=== PATIENT | female | born 1965 | race Caucasian/White ===

== ENCOUNTER 2020-04-16 07:23 | Outpatient (REF) | payer OTHER, SELFPAY ==
[2020-04-16 08:26] LABS: Estimated Average Glucose 143 mg/dL; Hemoglobin A1c % 6.6 %
[2020-04-16 08:36] LABS: Alanine Aminotransferase 17 U/L (0-31); Albumin Level 4.3 g/dL (3.5-5.0); Alkaline Phosphatase 109 U/L (39-117); Anion Gap 13 (12-20); Aspartate Amino Transferase 16 U/L (5-31); Bilirubin Total 0.4 mg/dL (0.0-1.0); Blood Urea Nitrogen 12 mg/dL (9-16); Carbon Dioxide 24 mmol/L (22-29); Chloride 104 mmol/L (96-108); Cholesterol 166 mg/dL; Estimated Glomerular Filt Rate > 60; Glucose Fasting 128 mg/dL (60-99); HDL Cholesterol 35 mg/dL; LDL Cholesterol Calculated 104 mg/dl; Sodium 137 mmol/L (135-145); Total Protein 6.6 g/dL (6.5-8.0); Triglycerides 136 mg/dL
[2020-04-16 08:58] LABS: TSH reflex Free T4 1.99 mIU/mL (0.32-4.0)
== END 2020-04-16 07:24 | disposition home or self-care (01) ==
LOC: HO.LAB 07:23
PROVIDERS: PCP Internal Medicine; Visit Provider Physician Assistant Medical
DX: E78.00 Pure hypercholesterolemia, unspecified (principal); R73.01 Impaired fasting glucose; E03.9 Hypothyroidism, unspecified
CPT/HCPCS: 80053; 80061; 83036; 84443

== ENCOUNTER 2020-09-20 13:09 | Outpatient (REF) | payer OTHER, SELFPAY ==
--- NOTE | ~2020-09-20 | MM_ITS ---
EXAMINATION: MM SCREENING DIGITAL BREAST TOMOSYNTHESIS, BILATERAL CLINICAL INFORMATION: Screening. Asymptomatic. The lifetime risk of breast cancer based on the Tyrer-Cuzick Model is 8.2%. COMPARISON: Mammography: July 28, 2019 and studies dating back to April 08, 2012 TECHNIQUE: Digital breast tomosynthesis is performed in both the craniocaudal and mediolateral oblique views along with computer-aided detection (CAD). Synthesized 2D images are generated from the tomosynthesis. FINDINGS: There are scattered areas of fibroglandular density (ACR BI-RADS breast composition Category b). There are no significant masses, abnormal calcifications, or other abnormalities. MM/MM tomosynthesis screening BI IMPRESSION: There are no significant changes from prior study. ASSESSMENT: BI-RADS 1: Negative RECOMMENDATION: Routine annual mammography screening. This patient's information was entered into a reminder system with a target due date for their next mammogram.
== END 2020-09-20 13:10 | disposition home or self-care (01) ==
LOC: HO.MAMMO 13:09
PROVIDERS: PCP Internal Medicine; Visit Provider Internal Medicine
DX: Z12.31 Encounter for screening mammogram for malignant neoplasm of breast (principal)
CPT/HCPCS: 77063; 77067

== ENCOUNTER 2020-10-08 07:37 | Outpatient (REF) | payer OTHER, SELFPAY ==
[2020-10-08 08:13] LABS: Estimated Average Glucose 143 mg/dL; Hemoglobin A1c % 6.6 %
== END 2020-10-08 07:38 | disposition home or self-care (01) ==
LOC: HO.LAB 07:37
PROVIDERS: PCP Internal Medicine; Visit Provider Internal Medicine
DX: R73.01 Impaired fasting glucose (principal)
CPT/HCPCS: 36415; 80053; 83036

== ENCOUNTER 2020-12-12 14:44 | Outpatient (REF) | payer OTHER, SELFPAY ==
--- NOTE | ~2020-12-12 | XR_ITS ---
EXAMINATION: XR ELBOW, LEFT CLINICAL INFORMATION: Pain. COMPARISON: None TECHNIQUE: AP, lateral, and oblique views of the left elbow. FINDINGS: The joint space is normal. No loose bodies, fracture or joint effusion. The soft tissues are normal. XR/XR elbow LT min 3V IMPRESSION: Unremarkable left elbow exam.
[2020-12-12 16:30] LABS: Estimated Average Glucose 146 mg/dL; Hemoglobin A1c % 6.7 %
== END 2020-12-12 14:45 | disposition home or self-care (01) ==
LOC: HO.XRAY 14:44
PROVIDERS: PCP Internal Medicine; Visit Provider Physician Assistant
DX: M25.522 Pain in left elbow (principal); E11.9 Type 2 diabetes mellitus without complications
CPT/HCPCS: 36415; 73080; 83036

== ENCOUNTER → 2021-02-02 08:13 | Outpatient (REF) | payer OTHER, SELFPAY ==
--- NOTE | 2021-02-02 08:18 | CA_ITS ---
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 The calculated ejection fraction is 60% by biplane method. - No obvious valvular pathology seen on this study. Findings Left Ventricle Normal left ventricular cavity size. There is normal left ventricular wall thickness. The left ventricular systolic function is normal. The calculated ejection fraction is 60% by biplane method. There is no evidence of regional wall motion abnormalities. Diastolic function is normal for age. Right Ventricle Normal right ventricular cavity size and systolic function. Atria Both atria are normal in size. Aortic Valve There is a normal trileaflet aortic valve. There is no aortic valve stenosis. There is no aortic valve regurgitation. Mitral Valve The mitral valve appears normal. There is trace mitral valve regurgitation. There is no mitral valve stenosis. Pulmonic Valve The pulmonic valve was not well visualized. Tricuspid Valve Normal tricuspid valve structure. There is mild tricuspid valve regurgitation. The pulmonary artery systolic pressure is normal. Great Vessels The aortic annulus, sinuses of valsalva, asc aorta, and aortic arch are normal in size. Venous The inferior vena cava is normal in size and collapses greater than 50% with inspiration. Pericardium/Pleural There is no evidence of pericardial effusion. Prior Study Comparison No significant change compared to prior study dated: 11/06/2001. Recommendations, Care & Conclusions No obvious valvular pathology seen on this study. Measurements 2D Linear Measurements IVSd: 0.93 0.6-0.9/0.6-1.0 cm LVIDd: 5.27 3.9-5.3/4.2-5.9 cm LVIDd Index: 2.34 2.4-3.2/2.2-3.1 cm/m2 LVIDs: 3.66 2.0-3.6 cm LVPWd: 0.86 0.7-1.1 cm Ao Root: 2.90 2.1-3.5 cm LA Diam: 4.50 2.7-3.8/3.0-4.0 cm LAIDs Index: 2.00 1.5-2.3 cm/m2 LV Mass: 213.75 67-162/88-224 g LV Mass Index: 95.00 43-95/49-115 g/m2 LVOT Diam: 2.10 3.0+(-)1.3 cm 2D Systolic Function EF 4C: 57.20 >55% EF 2C: 61.50 >55% EF BiP: 60.00 >55% Mitral Valve MV Pk E: 0.75 MV PK A: 0.60 MV Decel Time: 182.00 E/A: 1.20 E'Lateral: 10.90 E'Medial: 8.70 E/E' Med: 8.60 E/E' Lat: 6.80 PHT: 53.00 MVA PHT: 4.15 Decel [place]: 4.10 Aortic Valve AoV Pk [place]: 1.35 AoV Mn [place]: 0.94 AoV VTI: 0.27 AoV Pk Grad: 7.00 Aov Mn Grad: 4.00 WILLIAM Cont.VTI: 2.90 LVOT LVOT Pk [place]: 1.12 LVOT Mn [place]: 0.79 LVOT VTI: 0.23 LVOT Pk Grad: 5.00 LVOT Mn Grad: 3.00 LVOT Diam: 2.10 LVOT Area: 3.46 Diastolic Function MV Pk E: 0.75 MV Pk A: 0.60 E/A: 1.20 E'Medial: 8.70 E/E' Med: 8.60 E' Laterial: 10.90 E/E' Lat: 6.80 Right Ventricle TAPSE (mm): 2.48 TVS' [place]: 12.60 Tricuspid Valve TR Pk [place]: 2.29 TR Pk Grad: 21.00 RA Press: 3.00 RVSP: 24.00 Great Vessels Aorta Ao Root-2D: 2.90 2.0-3.7 cm Ao Asc: 3.00 2.1-3.4 cm Ao Arch: 2.70 Updated in Other Vendor System with Status of Final Johnny Fagan MD electronically signed on 02/04/2021 1:42:30 PM with status of Final
--- NOTE | 2021-02-02 09:30 | CA_ITS ---
Acquisition Time: 2021-02-02 09:20:18 Total Exercise Time: 00:05:00 Test Indications: FM HX CAD Medications: SEE CHART Protocol: IVONNE Max HR: 162 BPM 98% of Pred: 165 BPM Max BP: 206/050 mmHG Max Work Load: 7.0 METS Exercise stress test with exercise 5 min of Ivonne protocol, with moderate shortness of breath and report of dry mouth , no CP, without arrythmia, with hypertensive response to exercise with max BP 206/50, without EKG changes meeting criteria for ischemia. In recovery her breathing returned to baseline and BP gradually reduced to below baseline. Test reviewed with Dr Fagan. Referred By: Ml Leon Overread By: ROULA MIMS
== END ==
LOC: HO.CARD 08:13
PROVIDERS: PCP Internal Medicine; Visit Provider Physician Assistant
DX: M25.522 Pain in left elbow (principal); Z82.49 Family history of ischemic heart disease and other diseases of the circulatory system
CPT/HCPCS: 93017; 93306

== ENCOUNTER 2021-05-22 13:43 | Outpatient (REF) | payer OTHER, SELFPAY ==
--- NOTE | ~2021-05-22 | XR_ITS ---
EXAMINATION: XR CHEST CLINICAL INFORMATION: Shortness of breath. COMPARISON: None TECHNIQUE: 2 views of the chest were obtained. FINDINGS: The trachea is in normal anatomic position. The heart is minimally enlarged. There is enlargement of the pulmonary vasculature without overt pulmonary edema. There is mild blunting of the right costophrenic angle consistent with a small right pleural effusion. There is no pneumothorax. There is no acute osseous abnormality. XR/XR chest 2V IMPRESSION: Enlargement of the pulmonary vasculature and a small right pleural effusion suggestive of fluid overload. No pneumonia.
[2021-05-22 14:28] LABS: D Dimer High Sensitivity 643 NG/ML
== END 2021-05-22 13:44 | disposition home or self-care (01) ==
LOC: HO.LAB 13:43
PROVIDERS: PCP Physician Assistant; Visit Provider Physician Assistant
DX: R06.02 Shortness of breath (principal)
CPT/HCPCS: 36415; 71046; 85379

== ENCOUNTER 2021-06-06 16:02 | Outpatient (REF) | payer OTHER, SELFPAY ==
--- NOTE | ~2021-06-06 | XR_ITS ---
EXAMINATION: XR CHEST CLINICAL INFORMATION: Bilateral pleural effusions. COMPARISON: Chest 05/22/2021 TECHNIQUE: 2 views of the chest were obtained. FINDINGS: The lungs are expanded and clear of acute process. The heart size and pulmonary vascularity is normal. No gross bony abnormality seen. XR/XR chest 2V IMPRESSION: Unremarkable chest examination.
== END 2021-06-06 16:03 | disposition home or self-care (01) ==
LOC: HO.XRAY 16:02
PROVIDERS: PCP Physician Assistant; Visit Provider Physician Assistant
DX: J90 Pleural effusion, not elsewhere classified (principal)
CPT/HCPCS: 36415; 71046; 80053

== ENCOUNTER 2021-06-13 14:04 | Outpatient (REF) | payer OTHER, SELFPAY ==
[2021-06-13 18:45] LABS: Alanine Aminotransferase 13 U/L (0-31); Albumin Level 4.2 g/dL (3.5-5.0); Alkaline Phosphatase 110 U/L (39-117); Anion Gap 13 (12-20); Aspartate Amino Transferase 15 U/L (5-31); Bilirubin Total 0.4 mg/dL (0.0-1.0); Blood Urea Nitrogen 17 mg/dL (9-16); Calcium 9.8 mg/dL (8.4-10.2); Carbon Dioxide 24 mmol/L (22-29); Chloride 108 mmol/L (96-108); Estimated Glomerular Filt Rate > 60; Glucose Random 134 mg/dL (60-115); Potassium 3.7 mmol/L (3.3-5.1); Sodium 141 mmol/L (135-145); Total Protein 6.9 g/dL (6.5-8.0)
== END 2021-06-13 14:05 | disposition home or self-care (01) ==
LOC: HO.MANLDS 14:04
PROVIDERS: PCP Physician Assistant; Visit Provider Physician Assistant
DX: J90 Pleural effusion, not elsewhere classified (principal)
CPT/HCPCS: 36415; 80053

== ENCOUNTER → 2021-08-07 14:43 | Outpatient (REF) | payer OTHER, SELFPAY ==
--- NOTE | 2021-08-07 14:48 | CA_ITS ---
Transthoracic Echocardiogram Limited Patient (Last, First, Middle): Lorrie Parikh, Gender: Female Date of : 1965 Age: 56 Procedure Date: 08/07/2021 Procedure Type: Transthoracic Echocardiogram Limited Location: OP Height: 162.56 cm Weight: 122.47 kg BSA: 2.22 m2 Heart Rate: bpm BP: 124 / 80 mmHg Coding Coordinator: TRENT Referring MD: Ml HOGAN Symptoms: J90 PLURAL EFFUSION Study Quality: Fair ECG Rhythm: Sinus Conclusions: - The left ventricular systolic function is normal. The visually estimated ejection fraction is between 60-65%. - Normal right ventricular cavity size and systolic function. Findings Left Ventricle Normal left ventricular cavity size. The left ventricular systolic function is normal. The visually estimated ejection fraction is between 60-65%. There is no evidence of regional wall motion abnormalities. Top normal LV wall thickness. Right Ventricle Normal right ventricular cavity size and systolic function. Tricuspid Valve There is trace tricuspid valve regurgitation. The pulmonary artery systolic pressure is normal. Venous The inferior vena cava is normal in size and collapses greater than 50% with inspiration. Prior Study Comparison No significant change compared to prior study dated: 02/02/2021. Measurements 2D Linear Measurements IVSd: 1.35 0.6-0.9/0.6-1.0 cm LVIDd: 4.53 3.9-5.3/4.2-5.9 cm LVIDd Index: 2.04 2.4-3.2/2.2-3.1 cm/m2 LVIDs: 2.50 2.0-3.6 cm LVPWd: 1.30 0.7-1.1 cm LV Mass: 288.27 67-162/88-224 g LV Mass Index: 129.85 43-95/49-115 g/m2 Mitral Valve MV Pk E: 0.68 MV PK A: 0.58 MV Decel Time: 114.00 E/A: 1.20 E'Lateral: 12.60 E'Medial: 10.90 E/E' Med: 6.20 E/E' Lat: 5.40 PHT: 33.00 MVA PHT: 6.67 Decel [place]: 6.00 Diastolic Function MV Pk E: 0.68 MV Pk A: 0.58 E/A: 1.20 E'Medial: 10.90 E/E' Med: 6.20 E' Laterial: 12.60 E/E' Lat: 5.40 Right Ventricle TAPSE (mm): 20.00 TVS' [place]: 10.00 Tricuspid Valve TR Pk [place]: 1.90 TR Pk Grad: 14.00 RA Press: 3.00 RVSP: 17.00 Updated in Other Vendor System with Status of Final Johnny Fagan MD electronically signed on 08/08/2021 12:08:51 PM with status of Final
== END ==
LOC: HO.CARD 14:43
PROVIDERS: PCP Physician Assistant; Visit Provider Physician Assistant
DX: J90 Pleural effusion, not elsewhere classified (principal)
CPT/HCPCS: 93308

== ENCOUNTER 2021-09-26 13:50 | Outpatient (REF) | payer OTHER, SELFPAY ==
--- NOTE | ~2021-09-26 | MM_ITS ---
EXAMINATION: MM SCREENING DIGITAL BREAST TOMOSYNTHESIS, BILATERAL CLINICAL INFORMATION: Screening. Asymptomatic. The lifetime risk of breast cancer based on the Tyrer-Cuzick Model is 7%. COMPARISON: Mammography: 09/20/2020, 07/28/2019, 06/10/2018 TECHNIQUE: Digital breast tomosynthesis is performed in both the craniocaudal and mediolateral oblique views along with computer-aided detection (CAD). Synthesized 2D images are generated from the tomosynthesis. Additional bilateral CC and left MLO views are provided. FINDINGS: There are scattered areas of fibroglandular density (ACR BI-RADS breast composition Category b). There are no significant masses, abnormal calcifications, or other abnormalities. No developing density or architectural abnormality. The axilla and skin contours are unremarkable. MM/MM tomosynthesis screening BI IMPRESSION: No mammographic evidence of malignancy. ASSESSMENT: BI-RADS 1: Negative RECOMMENDATION: Routine annual mammography screening. This patient's information was entered into a reminder system with a target due date for their next mammogram.
== END 2021-09-26 13:51 | disposition home or self-care (01) ==
LOC: HO.MAMMO 13:50
PROVIDERS: PCP Physician Assistant; Visit Provider Obstetrics & Gynecology
DX: Z12.31 Encounter for screening mammogram for malignant neoplasm of breast (principal)
CPT/HCPCS: 77063; 77067

== ENCOUNTER 2021-10-17 11:52 | Outpatient (REF) | payer OTHER, SELFPAY ==
--- NOTE | ~2021-10-17 | XR_ITS ---
EXAMINATION: XR KNEE, RIGHT XR KNEE, LEFT CLINICAL INFORMATION: Bilateral knee pain. COMPARISON: Radiographs right knee 03/27/2016 and left knee 06/08/2014. TECHNIQUE: Each knee is imaged in 4 views including AP projections with weightbearing. There are total of 8 views between the 2 sides. FINDINGS: Right: Normal bony mineralization. There is moderate narrowing medial knee joint compartment. No subchondral sclerosis, erosive change, or chondrocalcinosis. No definite effusion. Patella bursal thickness within limits of normal. There is no destructive process. Axial view patella shows no lateralization or definite tilting. Left: Normal bony mineralization. Mild narrowing medial knee joint compartment, increased since prior imaging 2014. No erosive change or chondrocalcinosis or subchondral sclerosis. No suprapatellar effusion. Axial view patella shows no definite lateralization or tilting. No destructive process. XR/XR knee RT 4V IMPRESSION: -Narrowing medial knee joint compartments, moderate right, mild left. -No erosive change or chondrocalcinosis or definite effusion.
--- NOTE | ~2021-10-17 | XR_ITS ---
EXAMINATION: XR KNEE, RIGHT XR KNEE, LEFT CLINICAL INFORMATION: Bilateral knee pain. COMPARISON: Radiographs right knee 03/27/2016 and left knee 06/08/2014. TECHNIQUE: Each knee is imaged in 4 views including AP projections with weightbearing. There are total of 8 views between the 2 sides. FINDINGS: Right: Normal bony mineralization. There is moderate narrowing medial knee joint compartment. No subchondral sclerosis, erosive change, or chondrocalcinosis. No definite effusion. Patella bursal thickness within limits of normal. There is no destructive process. Axial view patella shows no lateralization or definite tilting. Left: Normal bony mineralization. Mild narrowing medial knee joint compartment, increased since prior imaging 2014. No erosive change or chondrocalcinosis or subchondral sclerosis. No suprapatellar effusion. Axial view patella shows no definite lateralization or tilting. No destructive process. XR/XR knee LT 4V IMPRESSION: -Narrowing medial knee joint compartments, moderate right, mild left. -No erosive change or chondrocalcinosis or definite effusion.
[2021-10-17 13:15] LABS: Estimated Average Glucose 140 mg/dL; Hemoglobin A1c % 6.5 %
[2021-10-17 13:46] LABS: Alanine Aminotransferase 17 U/L (0-31); Albumin Level 4.3 g/dL (3.5-5.0); Alkaline Phosphatase 111 U/L (39-117); Anion Gap 13 (12-20); Aspartate Amino Transferase 16 U/L (5-31); Bilirubin Total 0.5 mg/dL (0.0-1.0); Blood Urea Nitrogen 13 mg/dL (9-16); C Reactive Protein 0.15 mg/dL (< or = 0.50); Calcium 9.6 mg/dL (8.4-10.2); Carbon Dioxide 25 mmol/L (22-29); Chloride 107 mmol/L (96-108); Estimated Glomerular Filt Rate > 60; Glucose Random 104 mg/dL (60-115); Potassium 4.3 mmol/L (3.3-5.1); Sodium 141 mmol/L (135-145)
[2021-10-17 13:50] LABS: Erythrocyte Sedimentation Rate 6 MM/HR (0-20)
[2021-10-17 13:58] LABS: Uric Acid 5.9 mg/dL (2.4-5.7)
== END 2021-10-17 11:53 | disposition home or self-care (01) ==
LOC: HO.LAB 11:52
PROVIDERS: PCP Physician Assistant; Visit Provider Physician Assistant
DX: E11.9 Type 2 diabetes mellitus without complications (principal); M25.561 Pain in right knee; M25.562 Pain in left knee
CPT/HCPCS: 36415; 73564; 80053; 83036; 84550; 85652; 86140

== ENCOUNTER 2021-12-09 07:14 | Outpatient (REF) | payer OTHER, SELFPAY ==
[2021-12-09 08:58] LABS: Alanine Aminotransferase 16 U/L (0-31); Albumin Level 4.4 g/dL (3.5-5.0); Alkaline Phosphatase 116 U/L (39-117); Anion Gap 13 (12-20); Aspartate Amino Transferase 16 U/L (5-31); Bilirubin Total 0.6 mg/dL (0.0-1.0); Blood Urea Nitrogen 12 mg/dL (9-16); C Reactive Protein 0.16 mg/dL (< or = 0.50); Carbon Dioxide 23 mmol/L (22-29); Chloride 108 mmol/L (96-108); Estimated Glomerular Filt Rate > 60; Glucose Random 129 mg/dL (60-115); Sodium 140 mmol/L (135-145); Total Protein 6.8 g/dL (6.5-8.0); Uric Acid 5.4 mg/dL (2.4-5.7)
[2021-12-09 09:05] LABS: Estimated Average Glucose 146 mg/dL; Hemoglobin A1c % 6.7 %
[2021-12-09 09:07] LABS: Erythrocyte Sedimentation Rate 7 MM/HR (0-20)
== END 2021-12-09 07:15 | disposition home or self-care (01) ==
LOC: HO.LAB 07:14
PROVIDERS: PCP Internal Medicine; Visit Provider Physician Assistant
DX: M25.561 Pain in right knee (principal); E11.9 Type 2 diabetes mellitus without complications
CPT/HCPCS: 36415; 80053; 83036; 84550; 85652; 86140

== ENCOUNTER 2022-07-05 07:30 | Outpatient (REF) | payer OTHER, SELFPAY ==
--- NOTE | 2022-07-05 | PFT_ITS ---
Forced vital capacity 85%, FEV1 89%, [id number] is 96%, and MVV 89%. Post bronchodilator therapy, there is no change. Total lung capacity 90% and residual volume 84%. Diffusion capacity 71%. CONCLUSION: Normal pulmonary function test. No evidence of obstructive or restrictive pulmonary disorder. Clinical correlation recommended. MD THONY De Jesus/SÁNCHEZ / [id number]
== END 2022-07-05 07:31 | disposition home or self-care (01) ==
LOC: HO.RESP 07:30
PROVIDERS: PCP Physician Assistant; Visit Provider Physician Assistant
DX: R05.9 Cough, unspecified (principal)
CPT/HCPCS: 94060; 94727; 94729

== ENCOUNTER 2022-10-02 13:48 | Outpatient (REF) | payer OTHER, SELFPAY ==
--- NOTE | ~2022-10-02 | MM_ITS ---
EXAMINATION: MM SCREENING DIGITAL BREAST TOMOSYNTHESIS, BILATERAL CLINICAL INFORMATION: Screening. Asymptomatic. The lifetime risk of breast cancer based on the Tyrer-Cuzick Model is 7%. COMPARISON: Mammography: 09/26/2021, 09/20/2020, 07/28/2019, 06/10/2018 TECHNIQUE: Digital breast tomosynthesis is performed in both the craniocaudal and mediolateral oblique views along with computer-aided detection (CAD). Synthesized 2D images are generated from the tomosynthesis. Additional bilateral MLO views are provided. FINDINGS: There are scattered areas of fibroglandular density (ACR BI-RADS breast composition Category b). There are no significant masses, abnormal calcifications, or other abnormalities. No architectural abnormality or developing density or significant change from prior studies. The axilla are unremarkable. MM/MM tomosynthesis screening BI IMPRESSION: No mammographic evidence of malignancy. ASSESSMENT: BI-RADS 1: Negative RECOMMENDATION: Routine annual mammography screening. This patient's information was entered into a reminder system with a target due date for their next mammogram.
== END 2022-10-02 13:49 | disposition home or self-care (01) ==
LOC: HO.MAMMO 13:48
PROVIDERS: PCP Internal Medicine; Visit Provider Physician Assistant
DX: Z12.31 Encounter for screening mammogram for malignant neoplasm of breast (principal)
CPT/HCPCS: 77063; 77067

== ENCOUNTER 2022-11-17 07:07 | Outpatient (REF) | payer OTHER, SELFPAY ==
[2022-11-17 07:29] LABS: MANUAL DIFF FLAG NO
[2022-11-17 07:51] LABS: Basophils Percent Auto 0.7 % (0-2); Eosinophils Absolute Auto 0.3 X10*3/uL (0.0-0.4); Eosinophils Percent Auto 4.6 % (0-4); Hematocrit 39.4 % (37.0-47.0); Hemoglobin 13.3 g/dl (12.0-16.0); Imm Gran Abs Auto 0.02 X10*3/uL (0.00-0.03); Imm Gran Pct Auto 0.3 % (0.0-0.4); Lymphocytes Absolute Auto 1.8 X10*3/uL (1.2-4.9); Lymphocytes Percent Auto 28.7 % (20-40); Mean Corpuscular HGB Conc 33.8 g/dl (31.0-35.0); Mean Corpuscular Volume 94.7 fL (80.0-98.0); Mean Platelet Volume 11.2 fL (9.4-12.3); Monocytes Absolute Auto 0.5 X10*3/uL (0.1-1.2); Monocytes Percent Auto 7.5 % (2-11); Neutrophils Absolute Auto 3.6 x10*3/uL (2.0-8.3); Neutrophils Percent Auto 58.2 % (45-73); Platelet Count 213 X10*3/uL (160-400); Red Blood Count 4.16 X10*6/uL (4.20-5.50); Red Cell Distribution Width 12.9 % (11.0-16.0); White Blood Count 6.1 X10*3/uL (4.8-10.8)
[2022-11-17 08:07] LABS: Estimated Average Glucose 137 mg/dL; Hemoglobin A1c % 6.4 %
[2022-11-17 08:26] LABS: Alanine Aminotransferase 14 U/L (0-31); Albumin Level 4.2 g/dL (3.5-5.0); Alkaline Phosphatase 111 U/L (39-117); Anion Gap 13 (12-20); Aspartate Amino Transferase 18 U/L (5-31); Bilirubin Total 0.7 mg/dL (0.0-1.0); Blood Urea Nitrogen 12 mg/dL (9-16); Calcium 9.9 mg/dL (8.4-10.2); Carbon Dioxide 26 mmol/L (22-29); Chloride 108 mmol/L (96-108); Cholesterol 187 mg/dL; Estimated Glomerular Filt Rate > 60; Glucose Random 136 mg/dL (60-115); HDL Cholesterol 36 mg/dL; LDL Cholesterol Calculated 111 mg/dl; Potassium 4.5 mmol/L (3.3-5.1); Sodium 142 mmol/L (135-145); Total Protein 6.8 g/dL (6.5-8.0); Triglycerides 202 mg/dL
[2022-11-17 08:49] LABS: Free T4 (Free Thyroxine) 0.84 ng/dL (0.71-1.85)
== END 2022-11-17 07:08 | disposition home or self-care (01) ==
LOC: HO.LAB 07:07
PROVIDERS: PCP Internal Medicine; Visit Provider Physician Assistant
DX: Z00.00 Encounter for general adult medical examination without abnormal findings (principal); R73.01 Impaired fasting glucose; Z82.49 Family history of ischemic heart disease and other diseases of the circulatory system
CPT/HCPCS: 36415; 80053; 80061; 83036; 84439; 84443; 85025

== ENCOUNTER 2023-04-13 07:12 | Outpatient (REF) | payer OTHER, SELFPAY ==
[2023-04-13 07:53] LABS: Estimated Average Glucose 134 mg/dL; Hemoglobin A1c % 6.3 % (<6.0)
[2023-04-13 08:10] LABS: Cholesterol 180 mg/dL (<200); HDL Cholesterol 38 mg/dL (>40); LDL Cholesterol Calculated 115 mg/dL (<100); Triglycerides 139 mg/dL (<150)
[2023-04-13 08:26] LABS: TSH reflex Free T4 1.95 uIU/mL (0.32-4.0)
== END 2023-04-13 07:13 | disposition home or self-care (01) ==
LOC: HO.LAB 07:12
PROVIDERS: PCP Physician Assistant; Visit Provider Physician Assistant
DX: E11.9 Type 2 diabetes mellitus without complications (principal); E03.1 Congenital hypothyroidism without goiter
CPT/HCPCS: 36415; 80061; 83036; 84443

== ENCOUNTER 2023-08-01 06:18 | Outpatient (REF) | payer OTHER, SELFPAY ==
[2023-08-01 06:54] LABS: MANUAL DIFF FLAG NO
[2023-08-01 07:57] LABS: Basophils Percent Auto 0.6 % (0-2); Eosinophils Absolute Auto 0.2 X10*3/uL (0.0-0.4); Eosinophils Percent Auto 3.1 % (0-4); Hematocrit 39.7 % (37.0-47.0); Hemoglobin 13.5 g/dl (12.0-16.0); Imm Gran Abs Auto 0.03 X10*3/uL (0.00-0.03); Imm Gran Pct Auto 0.6 % (0.0-0.4); Lymphocytes Absolute Auto 1.7 X10*3/uL (1.2-4.9); Mean Corpuscular Hemoglobin 32.5 pg (27.0-33.0); Mean Corpuscular Volume 95.4 fL (80.0-98.0); Mean Platelet Volume 12.1 fL (9.4-12.3); Monocytes Absolute Auto 0.4 X10*3/uL (0.1-1.2); Monocytes Percent Auto 7.4 % (2-11); Neutrophils Absolute Auto 3.1 x10*3/uL (2.0-8.3); Neutrophils Percent Auto 57.3 % (45-73); Platelet Count 178 X10*3/uL (160-400); Red Blood Count 4.16 X10*6/uL (4.20-5.50); Red Cell Distribution Width 12.3 % (11.0-16.0); White Blood Count 5.4 X10*3/uL (4.8-10.8)
[2023-08-01 08:11] LABS: Appearance Urine Clear; Color Urine Yellow; Glucose Urine UA Negative (Negative); Leukocyte Esterase Urine Small (1+) (Negative); Nitrite Urine Negative (Negative); PH 5.5 (5.0-9.0); Specific Gravity - Urine 1.015 (1.005-1.025); UMIC TRIGGER UACC YES; Urine Blood Negative (Negative); Urine Ketones Negative (Negative); Urine Protein Negative (Neg-Trace)
[2023-08-01 08:15] LABS: Estimated Average Glucose 134 mg/dL; Hemoglobin A1c % 6.3 % (<6.0)
[2023-08-01 08:32] LABS: Bacteria Urine None Seen (None Seen); Hyaline Casts Urine 0-2 /LPF (0-2); RBC Urine 0-2 /HPF (0-2); Squamous Epithelial Cell Urine 0-2 /HPF (0-2); UACC Culture Trigger YES; WBC Urine 0-5 /HPF (0-5)
[2023-08-01 08:34] LABS: Erythrocyte Sedimentation Rate 7 MM/HR (0-20)
[2023-08-01 08:35] LABS: Alanine Aminotransferase 19 U/L (0-31); Albumin Level 4.3 g/dL (3.5-5.0); Alkaline Phosphatase 104 U/L (39-117); Anion Gap 12 (12-20); Aspartate Amino Transferase 18 U/L (5-31); Bilirubin Total 0.4 mg/dL (0.0-1.0); Blood Urea Nitrogen 12 mg/dL (9-16); Calcium 9.4 mg/dL (8.4-10.2); Carbon Dioxide 24 mmol/L (22-29); Chloride 107 mmol/L (96-108); Estimated Glomerular Filt Rate > 60; Glucose Random 137 mg/dL (60-115); Iron 90 mcg/dL (30-160); Percent Iron Saturation 35 % (15-50); Sodium 139 mmol/L (135-145); Total Iron Binding Capacity 255 mcg/dL (228-428); Total Protein 7.1 g/dL (6.5-8.0); Unsaturated Iron Binding 165 ug/dL
[2023-08-01 08:37] LABS: Free T4 (Free Thyroxine) 0.97 ng/dL (0.71-1.85); Thyroid Stimulating Hormone 2.72 uIU/mL (0.32-4.0); Vitamin D 25-OH Total 52.4 ng/mL (>30)
[2023-08-01 08:57] LABS: Vitamin B12 413 pg/mL (200-900)
[2023-08-01 09:02] LABS: D Dimer High Sensitivity 436 NG/ML
[2023-08-03 06:18] LABS: Lyme Abs Screen <0.90 index
== END 2023-08-01 06:19 | disposition home or self-care (01) ==
LOC: HO.LAB 06:18
PROVIDERS: PCP Physician Assistant; Visit Provider Physician Assistant
DX: R53.83 Other fatigue (principal); E11.9 Type 2 diabetes mellitus without complications
CPT/HCPCS: 36415; 80053; 81001; 81003; 82306; 82607; 82746; 83036; 83540; 84439; 84443; 85025; 85379; 85652; 86140; 86617; 86618; 87086

== ENCOUNTER 2023-10-04 14:56 | Outpatient (REF) | payer OTHER, SELFPAY | END 2023-10-04 14:57 | disposition home or self-care (01) | LOC: HO.MAMMO 14:56 | PROVIDERS: PCP Internal Medicine; Referring Provider Obstetrics & Gynecology; Visit Provider Internal Medicine | DX: Z12.31 Encounter for screening mammogram for malignant neoplasm of breast (principal) | CPT/HCPCS: 77063; 77067 ==

== ENCOUNTER → 2023-10-04 15:15 | Outpatient (BNV) | payer OTHER, SELFPAY | PROVIDERS: PCP Internal Medicine; Referring Provider Obstetrics & Gynecology; Visit Provider Radiology Diagnostic Radiology | DX: Z12.31 Encounter for screening mammogram for malignant neoplasm of breast (principal) | CPT/HCPCS: 77063; 77067 ==

== ENCOUNTER 2024-02-04 15:12 | Outpatient (REF) | payer OTHER, SELFPAY ==
[2024-02-04 17:06] LABS: Alanine Aminotransferase 19 U/L (0-31); Albumin Level 4.3 g/dL (3.5-5.0); Alkaline Phosphatase 102 U/L (39-117); Anion Gap 11 (12-20); Aspartate Amino Transferase 18 U/L (5-31); Bilirubin Total 0.3 mg/dL (0.0-1.0); Blood Urea Nitrogen 14 mg/dL (9-16); Calcium 9.5 mg/dL (8.4-10.2); Carbon Dioxide 26 mmol/L (22-29); Chloride 107 mmol/L (96-108); Estimated Glomerular Filt Rate > 60; Glucose Random 107 mg/dL (60-115); Potassium 3.8 mmol/L (3.3-5.1); Sodium 140 mmol/L (135-145); Total Protein 7.2 g/dL (6.5-8.0)
== END 2024-02-04 15:13 | disposition home or self-care (01) ==
LOC: HO.LABR 15:12
PROVIDERS: PCP Internal Medicine; Visit Provider Physician Assistant
DX: N18.2 Chronic kidney disease, stage 2 (mild) (principal)
CPT/HCPCS: 36415; 80053

== ENCOUNTER 2024-06-13 07:02 | Outpatient (REF) | payer OTHER, SELFPAY ==
[2024-06-13 08:11] LABS: Alanine Aminotransferase 25 U/L (0-31); Albumin Level 4.4 g/dL (3.5-5.0); Alkaline Phosphatase 117 U/L (39-117); Anion Gap 12 (12-20); Aspartate Amino Transferase 23 U/L (5-31); Bilirubin Total 0.5 mg/dL (0.0-1.0); Blood Urea Nitrogen 14 mg/dL (9-16); Calcium 9.5 mg/dL (8.4-10.2); Carbon Dioxide 24 mmol/L (22-29); Chloride 109 mmol/L (96-108); Estimated Glomerular Filt Rate > 60; Glucose Random 118 mg/dL (60-115); Potassium 4.2 mmol/L (3.3-5.1); Sodium 141 mmol/L (135-145); Total Protein 7.6 g/dL (6.5-8.0)
== END 2024-06-13 07:03 | disposition home or self-care (01) ==
LOC: HO.LABR 07:02
PROVIDERS: PCP Internal Medicine; Visit Provider Physician Assistant
DX: N18.2 Chronic kidney disease, stage 2 (mild) (principal)
CPT/HCPCS: 36415; 80053

== ENCOUNTER 2024-06-30 13:32 | Outpatient (AMB) | payer OTHER, SELFPAY ==
--- OUTSIDE RECORDS SUMMARY | 2024-06-30 13:46 | XMS_ITS | Data Portability ---
Author Organization [facility], Home Service Address [address] [place] [address] Assessment Encounter Date Assessment Date Assessment LastModified by Organization Details LastModified Time 10/09/2022 10/09/2022 The patient denies little pleasure in activities they find enjoyable, feeling depressed, difficulties sleeping, feeling tired or having little energy, change in appetite, feeling guilty, overwhelmed or unmotivated. The patient denies suicidal ideation, thoughts of hurting themselves or others. Their mood is appropriate, they show good judgement and clear understanding of the conversation. They are orientated to time, place and person. They are not expressing any concerning thoughts or actions that would need further investigation and treatment for mental health. [email or web address] Not available 10/09/2022 13:39:42 Plan of Treatment Reminders Order Date Submit Date Provider Last Modified By Organization Details Last Modified Time Details Appointments ANNUAL EXAM 2024 01:30P M SAMIRA MARSHALL Not available Not available Not available Lab CMP, serum or plasma 2022 023 [facility], [address] [place] [address], [place], [address], 11/19/2022 11:23:25 CBC w/ auto diff 2022 023 [facility], [address] [place] [address], [id number], 10/09/2022 14:00:41 lipid panel, blood 2022 023 [facility], [address] [place] [address], [id number], 10/09/2022 14:00:41 TSH + free T4, serum 2022 023 [facility], [address] [place] [address], [id number], 10/09/2022 14:00:41 hemoglobi n A1c, QN, blood 2022 023 [facility], [address] [place] [address], [id number], 10/09/2022 14:00:41 hemoglobi n A1c, QN, blood 2023 024 [facility], [address] [place] [address], [id number], 07/31/2023 11:38:38 iron + TIBC + ferritin, serum 2023 024 [facility], [address] [place] [address], [id number], 07/31/2023 11:38:38 vitamin B12 + folate, serum or blood 2023 024 [facility], [address] [place] [address], [address], 07/31/2023 11:38:38 vitamin D, 25-hydrox y, total, serum 2023 024 [facility], [address] [place] [address], [id number], 07/31/2023 11:38:38 TSH + free T4, serum 2023 024 [facility], [address] [place] [address], [id number], 07/31/2023 11:38:38 ESR (erythroc yte sedimenta tion rate), blood 2023 024 [facility], [address] [place] [address], [id number], 07/31/2023 11:38:38 CBC w/ auto diff 2023 024 [facility], [address] [place] [address], [id number], 07/31/2023 11:38:38 C-reactiv e protein, quantitat idania, serum or plasma 2023 024 [facility], [address] [place] [address], [address], 07/31/2023 11:38:38 CMP, serum or plasma 2023 024 [facility], [address] [place] [address], [id number], 08/01/2023 22:32:21 lyme disease igg+igm, serum, reflex western blot 2023 024 [facility], [address] [place] [address], [id number], 08/05/2023 11:44:31 D-dimer, quant, plasma 2023 024 [facility], [address] [place] [address], [address], 07/31/2023 11:43:27 urinalysi s complete, reflex culture 2023 024 [facility], [address] [place] [address], [address], 07/31/2023 11:40:19 CMP, serum or plasma 2023 024 [facility], [address] [place] [address], [id number], 02/05/2024 11:20:39 CMP, serum or plasma 2023 024 [facility], [address] [place] [address], [place], [address], 02/05/2024 11:20:39 urinalysi s, dipstick 2023 024 natalia [facility], [address], [address], [place], [address], 02/04/2024 11:13:45 Referral None recorded. Procedures None recorded. Surgeries None recorded. Imaging None recorded. Medication Orders Silvadene 1 % topical cream 2022 023 [id number], [address] [place] [address], [address], 10/09/2022 13:43:51 Patient TargetsNo targets recorded. Patient InstructionsNo instructions recorded. Reason for Referral None Reported. Results Created Date Observation Date Name Description Value Unit Range Abnormal Flag Note LastModifiedBy Organization Detail LastModifiedTime 02/04/20 24 02/04/2024 urina lysis , dipst ick Leukocytes Negati ve Not Available [address], [place], [address], 02/04/2024 10:59:33 02/04/20 24 02/04/2024 urina lysis , dipst ick Nitrite negati ve Not Available [address], [place], [address], 02/04/2024 10:59:33 02/04/20 24 02/04/2024 urina lysis , dipst ick Urobilinogen .2 Not Available [facility] [address], [place], [address], 02/04/2024 10:59:33 02/04/20 24 02/04/2024 urina lysis , dipst ick Protein Negati ve Not Available [place] [address] [facility] [address], [place], [address], 02/04/2024 10:59:33 02/04/20 24 02/04/2024 urina lysis , dipst ick pH 6.0 Not Available [facility] [address] [facility] [address], [place], [address], 02/04/2024 10:59:33 02/04/20 24 02/04/2024 urina lysis , dipst ick Blood Negati ve Not Available [facility] [address] [facility] [address], [place], [address], 02/04/2024 10:59:33 02/04/20 24 02/04/2024 urina lysis , dipst ick Specific [place] 1.010 Not Available [facility] [address] [facility] [address] [facility] [address], [place], [address], 02/04/2024 10:59:33 02/04/20 24 02/04/2024 urina lysis , dipst ick Ketone Negati ve Not Available [facility] [address] [facility] [address] [facility] [address], [place], [address], 02/04/2024 10:59:33 02/04/20 24 02/04/2024 urina lysis , dipst ick Bilirubin Negati ve Not Available [facility] [address] [facility] [address], [place], [address], 02/04/2024 10:59:33 02/04/20 24 02/04/2024 urina lysis , dipst ick Glucose Negati ve Not Available [facility] [address] [facility] [address] [facility] [address], [place], [address], 02/04/2024 10:59:33 02/04/20 24 02/04/2024 urina lysis , dipst ick Appearance Clear Not Available [facility] [address] [facility] [address], [place], [address], 02/04/2024 10:59:33 02/04/20 24 02/04/2024 urina lysis , dipst ick Color Yellow Not Available [facility] [address] [facility] [address] [facility] [address], [place], [address], 02/04/2024 10:59:33 10/06/19 23 10/02/2022 MAMMO , scree lyle, digit al, bilat eral No observ ation record ed. [email or web address] [address] [place], [address], 10/05/2022 08:55:48 11/01/19 24 10/04/2023 MAMMO , scree lyle, digit al, bilat eral No observ ation record ed. [email or web address] [address] [place], [address], 11/01/2023 10:23:22 Result Notes None recorded. Problems Name Problem SNOMED Code Status Onset Date Resolution Date Notes Provider Name and Address Organization Details Recorded Time Impaired fasting glycemia 610602643 Active 2018 Not Available [facility] 2 13:17:45 Type 2 diabetes mellitus 29510651 Active 2020 Not Available [facility] 2 13:17:45 Pain of bilateral knee joints 503639984153 104 Active 2021 Not Available [facility] 2 13:17:45 Edema of lower extremity 714048269 Active 2021 Not Available [facility] 2 13:17:45 Impacted cerumen of bilateral ears 493255568366 9108 Active 2021 Not Available [facility] 2 13:17:45 Osteoarth ritis of knee 244056565 Active 2021 Not Available [facility] 2 13:17:45 Generaliz ed anxiety disorder 60786308 Active 2021 Not Available [facility] 2 13:17:45 Acute bronchiti s 51831506 Active 2021 SAMIRA MARSHALL [address] [place] [address], [address], [facility] 2 10:40:48 Cough 56039569 Active 2022 SAMIRA MARSHALL [address] [place] [address], [address], [facility] 3 10:28:45 Hammer toe 026024679 Active 2022 SAMIRA MARSHALL [address] [place] [address], [address], [facility] 3 14:37:30 Finger ulcer 234041861 Active 2022 SAMIRA MARSHALL [address] [place] [address], [address], [facility] 3 13:39:31 Fatigue 12599950 Active 2023 SAMIRA MARSHALL [address] [place] [address], [address], [facility] 4 11:34:48 Skin ulcer 27834044 Active 2023 SAMIRA MARSHALL [address] [place] [address], [address], [facility] 4 11:39:52 Chronic kidney disease stage 2 368218368 Active 2023 SAMIRA MARSHALL [address] [place] [address], [address], [facility] 4 13:42:40 Low back pain 820270018 Active 2023 SAMIRA MARSHALL [address] [place] [address], [address], [facility] 4 11:05:30 Dysuria 39022649 Active 2023 SAMIRA MARSHALL [address] [place] [address], [address], [facility] 4 11:06:19 Obstructi ve sleep apnea syndrome 18362294 Active 2024 SAMIRA MARSHALL [address] [place] [address], [address], [facility] 5 13:28:42 Hyperchol esterolem ia 46025126 Active 2017 Not Available [facility] 2 13:17:45 Gastroeso phageal reflux disease 102677636 Active 2017 Not Available [facility] 2 13:17:45 Obesity 080911831 Active 2017 Not Available [facility] 2 13:17:45 Anxiety 42974364 Active 2017 Not Available [facility] 2 13:17:45 Hypothyro idism 69008621 Active 2017 Not Available [facility] 2 13:17:45 Notes:Some problems listed i n Documents: #[id number], #[id number] could not be added to this patient's chart. Please review these documents and add these problems to the patient's chart manually as needed. Problem Notes None recorded. Procedures Surgical History Date Name Laterality Status Provider Name and Address Organization Details Recorded Time 4 Cerumen Removal completed SAMIRA MARSHALL [address] [place] [address], [address], [facility] 10/25/2023 14:10:16 2 Cerumen Removal completed SAMIRA MARSHALL [address] [place] [address], [address], [facility] 10/17/2021 11:13:14 1 Cerumen Removal completed SAMIRA MARSHALL [address] [place] [address], [address], [facility] 04/18/2021 14:02:02 0 Cerumen Removal completed REBECCA Mcmahon [address] [place] [address], [address], [facility] 09/01/2019 14:42:39 7 Date of Last Pap Smear completed Sandeeheraclio Boo [facility] 02/17/2019 08:10:56 Imaging Results Imaging Date Name Status LastModified by Organiz ation Details LastModified Time 10/02/2022 MAMMO, screening, digital, bilateral completed [email or web address] [address] [place], [address], 10/05/2022 08:55:48 10/04/2023 MAMMO, screening, digital, bilateral completed [email or web address] [address] [place], [address], 11/01/2023 10:23:22 Procedure Notes None recorded. Medical Equipment None Reported. Allergies Allergen ID Allergen Name Allergen Category Reaction Reaction Severity Criticality Documentation Date Start Date Code Code System Note Provider Name and Address Organization Details Recorded Time 4867 cortisone medicatio n fever flushing moderate moderate Not available 02/17/2021 2878 RxNorm SAMIRA MARSHALL [address] [place], [address], [facility] 10:16:47 Medications Name Sig Start Date Stop Date Status Note LastModified by Organization Details LastModified Time Prescriptio n - Renewal 02/17 completed Not Available Not Available Not Available amoxicillin 500 mg capsule 1 po tid 07/07 completed Not Available Not Available Not Available atorvastati n 40 mg tablet Take 1 tablet every day by oral route for 90 days. 04/10 completed Not Available Not Available Not Available silver sulfadiazin e 1 % topical cream APPLY A 1/16 INCH (1.5 MM) THICK LAYER TO ENTIRE AREA BY TOPICAL ROUTE 2 TIMES PER DAY 2023 active Not Available Not Available Not Avai lable atorvastati n 80 mg tablet TAKE 1/2 TABLET BY MOUTH DAILY active Not Available Not Available No t Available paroxetine 10 mg tablet TAKE 1 TABLET BY MOUTH EVERY DAY active Not Available Not Available No t Available cefuroxime axetil 250 mg tablet 10/02 completed Not Available Not Available Not Available azithromyci n 250 mg tablet TAKE 2 TABLETS BY MOUTH TODAY, THEN TAKE 1 TABLET DAILY FOR 4 DAYS 08/28 completed Not Available Not Available Not Available meloxicam 15 mg tablet TAKE 1 TABLET BY MOUTH ONCE A DAY AFTER A MEAL 30 DAY(S) active Not Available Not Available No t Available Medrol (Klever) 4 mg tablets in a dose pack as directed 07/07 completed Not Available Not Available Not Available meclizine 12.5 mg tablet Take 1 tablet twice a day by oral route as needed. 10/17 completed Not Available Not Available Not Available amoxicillin 500 mg tablet Take 1 tablet every 8 hours by oral route. 2017 active Not Available Not Available Not Avai lable ondansetron 8 mg disintegrat ing tablet Place 1 tablet twice a day by transling ual route as needed for 30 days. 04/18 completed Not Available Not Available Not Available levothyroxi ne 25 mcg tablet Take 3 tablets every day by oral route. 11/21 completed Not Available Not Available Not Available levothyroxi ne 75 mcg tablet TAKE 1 TABLET BY MOUTH EVERY DAY active Not Available Not Available No t Available lorazepam 0.5 mg tablet TAKE 1 TABLET BY MOUTH TWICE A DAY NEEDED 2024 active Not Available Not Available Not Avai lable nystatin 100,000 unit/gram topical cream APPLY TO THE AFFECTED AREA(S) TOPICALLY 2 TIMES PER DAY 2024 active Not Available Not Available Not Avai lable ranitidine 150 mg tablet BID 08/31 completed Not Available Not Available Not Available gabapentin 300 mg capsule TAKE 2 CAPSULES BY MOUTH TWICE A DAY active Not Available Not Available No t Available omeprazole 20 mg capsule,del ayed release TAKE 1 CAPSULE BY MOUTH EVERY DAY active Not Available Not Available No t Available diclofenac sodium 75 mg tablet,vahe yed release TAKE 1 TABLET BY MOUTH TWICE A DAY active Not Available Not Available No t Available codeine 10 mg-guaifene sin 100 mg/5 mL oral liquid TAKE 10 ML BY MOUTH EVERY 4 HOURS NEEDED FOR 7 DAYS 08/28 completed Not Available Not Available Not Available furosemide 20 mg tablet Take 1 tablet every day by oral route for 14 days. 10/17 completed Not Available Not Available Not Available lorazepam 1 mg tablet TAKE 1/2 TAB BY MOUTH TWICE A DAY NEEDED 03/31 completed Not Available Not Available Not Available colchicine 0.6 mg tablet TAKE 2 TABLETS NOW AND REPEAT WITH 1 TABLET 1 HOUR LATER. DO NOT REPEAT UNTIL DAY 3 08/28 completed Not Available Not Available Not Available metformin ER 500 mg tablet,exte nded release 24 hr TAKE 1 TABLET BY MOUTH EVERY DAY 2023 active Not Available Not Available Not Avai lable naproxen 500 mg tablet Take 1 tablet twice a day by oral route for 15 days. 10/17 completed Not Available Not Available Not Available metoclopram janny 10 mg tablet TAKE 1 TABLET BY MOUTH 4 TIMES A DAY NEEDED FOR 20 DAYS 10/17 completed Not Available Not Available Not Available oxycodone 5 mg tablet 04/10 completed Not Available Not Available Not Available Vitamin D3 10 mcg (400 unit) capsule Take by oral route. 02/17 completed Not Available Not Available Not Available Vitamin D3 50 mcg (2,000 unit) capsule Take 1 capsule every day by oral route. active Not Available Not Available No t Available Fluzone Quad (PF) 60 mcg(15 mcgx4)/0.5 mL intramuscul ar syringe 08/31 completed Not Available Not Available Not Available Flucelvax Quad 60 mcg (15 mcg x 4)/0.5 mL intramuscul ar susp 08/31 completed Not Available Not Available Not Available Flucelvax Quad (PF) 60 mcg (15 mcg x 4)/0.5 mL IM syringe [facility] 04/26 completed Not Available Not Available Not Available BinaxNOW COVID-19 Ag Self Test kit TEST DIRECTED TODAY 10/09 completed Not Available Not Available Not Available Vitals Date Recorded Body height Body mass index (BMI) Body weight Heart rate Oxygen saturation Oxygen saturation in Arterial blood by Pulse oximetry Systolic blood pressure Diastolic blood pressure Provider Name and Address Organization Details Last Updated DateTime 3 163.83 cm 44.4 kg/m2 687587. 07 g 79 /min 94 % 94 % 120 mm[Hg] 70 mm[Hg] [facility] 3 13:35:46 Date Recorded Body weight Body mass index (BMI) Body height Heart rate Oxygen saturation Oxygen saturation in Arterial blood by Pulse oximetry Systolic blood pressure Diastolic blood pressure Provider Name and Address Organization Details Last Updated DateTime 4 971632. 54 g 44.7 kg/m2 163.83 cm 80 /min 97 % 97 % 120 mm[Hg] 72 mm[Hg] Aida Esquivel [facility] 4 13:36:32 Date Recorded Body height Body mass index (BMI) Body weight Heart rate Oxygen saturation Oxygen saturation in Arterial blood by Pulse oximetry Systolic blood pressure Diastolic blood pressure Provider Name and Address Organization Details Last Updated DateTime 4 163.83 cm 40.2 kg/m2 644223. 98 g 74 /min 99 % 99 % 132 mm[Hg] 86 mm[Hg] Dean May [facility] 4 10:58:13 Social History Question Answer Notes LastModified by [employer] ion Details LastModified Time Tobacco Smoking Status Never Smoker Suyapa monk [facility] 10/01/2017 16:30:45 What Was The Date Of Your Most Recent Tobacco Screening? 02/04/2024 [email or web address] Information not available 02/04/2024 Sex: Unknown Functional Status None recorded. Mental Status None recorded. Family History Relationship Description Onset Age of this Age Resolved Age Notes LastModified by Organization Details LastModified Time Sister Coronary arterioscler osis 39 yrs old [email or web address] Not available 02/17/2019 08:14:46 Medical History Condition Response Coronary Artery Disease N Gout N Other N Kidney Stones N Blood Diseases N Blood Transfusion N Breast Cancer N Lung Disease N Depression N COPD N Defects or Inherited Disease N Anxiety Disorder N Muscle, Joint, or Bone Problems N Obesity N Vision or Eye Problems N Arthritis N Infertility N Polyps N Mental Disorder N Cancer N Stroke N Varicosities N Endometriosis N Bladder or Kidney Problems N High Cholesterol N Liver Disease N Fibromyalgia N Headaches N Kidney Disease N Allergies/Hayfever N Heart Problems N Hospitalizations N Thyroid Problems N GI Problems N Eating Disorder N Skin Problems N Anemia N MRSA exposure N Constipation N Mental Illness N Diabetes N Ovarian Cancer N Seizures/Epilepsy N Tuberculosis N Congestive Heart Failure (CHF) N Eczema N Abuse/Domestic Violence N Diverticulitis N Asthma N Reflux/GERD N Hepatitis N Heart Disease N Pulmonary Embolism N Hypertension N Chicken Pox N Autism Spectrum Disorder (ASD) N Osteoporosis N Gynecological History Statement/Question Response Date of Last Pap Smear 04/30/2017 Obstetrics History GPAL:G 0 P 0 0 0 0 Immunizations Vaccine Type Date Status Note Provider Nam e and Address Organization Details Recorded Time COVID-19, mRNA, LNP-S, PF, 100 mcg/0.5mL dose or 50 mcg/0.25mL dose 2 [facility] 14:08:16 Influenza, split virus, quadrivalent, preservative 2 completed Lorrie monk, [facility] 08/28/2022 14:08:16 Influenza, split virus, quadrivalent, preservative 8 [facility] 14:08:16 Influenza, [place] 4 [facility] 03/16/2024 08:22:55 Tdap 7 completed Not Available [facility] 09/08/2021 15:50:21 Influenza, split virus, quadrivalent, preservative 9 [facility] 14:08:16 Influenza, split virus, quadrivalent, preservative 0 [facility] 14:08:16 COVID-19, mRNA, LNP-S, PF, 30 mcg/0.3 mL dose 1 [facility] 14:08:16 COVID-19, mRNA, LNP-S, PF, 30 mcg/0.3 mL dose 1 [facility] 14:08:16 Past Encounters Encounter ID Performer Location Encounter Start Date Encounter Closed Date Diagnosis/Indication Diagnosis SNOMED-CT Code Diagnosis ICD10 Code Diagnosis Note [id number] Ct Chase NP, S [facility] [address] [facility],[place] [address] 10/02/2017 14:29:08 10/02/2017 17:01:37 Pre-surgery evaluation 838590924 Z01.818 carpal tunnel Generalize d anxiety disorder 99041458 F41.1 stable, prn lorazepam Impaired f asting glycemia 541477759 R73.01 A1C 6.0, encourage weight loss Hypothyroidism 13701881 E03.9 stable Hypercholesterolemia 136 01055 E78.[address] [place] [id number] [address] Chase NP, [facility] [address] [facility], [place] [address] 04/28/2018 13:39:39 04/28/2018 15:47:46 Gastroesophageal reflux disease 863394326 K21.9 Dysfunctio n of eustachian tube 15934719 H69.91 Hypercholesterolemia 136 13560 E78.00 continue atorvastat in Hypothyroidism 38129396 E03.9 stable Excessive cerumen in ear canal 139856273 H61.[id number] Chase NP, [facility] [address] [place] [address], [place] [address] 07/07/2018 16:16:43 07/07/2018 16:52:25 Dizziness 516802250 R42 call if no better 7-10 days Hypothyroidism 62195935 E03.9 stable Anxiety 42044412 F41.9 discussed [facility] [address] [facility], [place] [address] 11/21/2018 15:18:44 11/21/2018 16:19:59 Sprain of knee 38462075 S83.90XA RICE Hypothyroidism 59213291 E03.9 Anxiety 85895174 F41.9 Adult heal th examination 079241596 Z00.00 Body mass index 40+ - severely obese 235861425 Z68.42 Vitamin D deficiency 347 37537 E55.9 [id number] [facility] [address] [facility],[place] [address] [place] [address] 01/23/2019 13:41:48 01/23/2019 16:31:51 Obesity 169231252 E66.9 Hypothyroidism 66516298 E03.9 done 10/2018 Impaired f asting glycemia 956146404 R73.01 will get a1c at cpe Gastroesop hageal reflux disease 986891186 K21.9 on ranitidine Upper resp iratory infection 12444777 J06.9 likely viral mucinex - dm sudafed as needed [id number] [facility] [address] [facility],[place] [address] 02/17/2019 13:19:09 02/17/2019 14:04:42 Renewal of prescription 266588934 Z76.0 Hypercholesterolemia 136 13483 E78.00 Anxiety 90408605 F41.9 Adult heal th examination 930779260 Z00.00 Active or passive immunization 154796959 Z23 Gastroesop hageal reflux disease 087853148 K21.9 on ranitidine Impaired f asting glycemia 400277004 R73.01 will get a1c at cpe Hypothyroidism 48603872 E03.9 done 10/2018 Obesity 670520274 E66.9 Increased blood pressure 62148012 R03.0 normal, will continue to monitor Pain of le ft shoulder joint 5516959186 2345743 M25.512 exam suggestive of impingemen t stretch,re st ice consider PT Pain in toe 694788094 M7 9.674 normal exam Inguinal pain 877520092 R10.2 ttp in the RLQ, overall mild no bulging will monitor - if worsens or doesn't resolve will f/u [id number] August [facility] [address] [facility],[place] [address] 09/01/2019 13:41:21 09/01/2019 14:45:34 Hypercholesterolemia 14176988 E78.00 Anxiety 89486134 F41.9 Gastroesop hageal reflux disease 381304307 K21.9 stopped ranitidine due ot recall now on omeprazole Impaired f asting glycemia 811430229 R73.01 will get a1c at cpe Hypothyroidism 12127375 E03.9 done 10/2018 Obesity 499039141 E66.9 Increased blood pressure 33179517 R03.0 normal, will continue to monitor Body mass index 40+ - severely obese 039364218 Z68.42 Swelling o f ankle joint 072613303 M25.473 not present today elevate, limit sodium, get up and walk around not painful Impacted c erumen of bilateral ears 5941648250 292504 H61.23 successful [id number] Chris Wynne DO [facility] [address] [facility],[place] [address] 08/23/2020 14:18:14 08/23/2020 16:42:40 Active or passive immunization 936391024 Z23 has finished covid vacc Adult heal th examination 074212287 Z00.01 long detailed discussion re labwork etc will need to rechk after her apnea is treated Depression screening 171 960534 Z13.31 seems to be down at times but is noted to be stressed at times Impaired f asting glycemia 010352250 R73.01 a1c is near diabetes at a1c 6.6 Hypothyroidism 14751491 E03.9 will have her rechk a tsh Hypercholesterolemia 136 60194 E78.00 Obstructiv e sleep apnea syndrome 45672005 G47.33 [id number] SAMIRA MARSHALL [facility] [address] [facility],[place] [address] 12/12/2020 14:00:16 12/12/2020 14:21:05 Family history of Cardiovascular disease 190136282 Z82.49 will fu with cardiac testing due to her cousin having a [place] and family history of heart disease Pain of le ft elbow joint 6227347674 4314828 M25.522 will fu with XR Type 2 horace betes mellitus 27561399 E11.9 will recheck her labs [id number] SAMIRA MARSHALL [facility] [address] [facility],[place] [address] 02/17/2021 09:45:07 02/17/2021 11:18:33 Allergic reaction to drug 168724010 T50.905A possible cortisone allergy/re actionwill eventually clear from system, will have her use bendryl and pepcid in the mean time [id number] SAMIRA MARSHALL [facility] [address] [facility] [address] 04/10/2021 11:57:59 04/10/2021 14:04:45 Benign paroxysmal positional vertigo 899365041 H81.13 instructed to let PT know about the vertigo to adjust her exercises Impacted c erumen of bilateral ears 8268190995 303690 H61.23 will have her use debrox and fu next week Nausea 439951279 R11.0 will start on zofran for nausea [id number] SAMIRA MARSHALL [facility] [address] [facility], [place] [address] 04/18/2021 13:27:20 04/18/2021 16:18:19 Anxiety 68629454 F41.1 needs refill Body mass index 40+ - severely obese 589899299 Z68.42 discussed diet, what she should be eating and portion size Type 2 horace betes mellitus 09940456 E11.9 discussed A1c results from previous awtqfR1u is good at 6.7% Benign par oxysmal positional vertigo 183831569 H81.13 will add meclizine Nausea 297010478 R11.0 will try another medication for the nausea Finger ulcer 421778265 L 98.499 will start with wound dressing and monitoring [id number] SAMIRA MARSHALL [facility] [address] [facility], [place] [address] 05/22/2021 11:37:17 05/22/2021 14:52:20 Dyspnea 442619760 R06.02 will fu with testingwou ld like to exclude PE given recent surgery [id number] SAMIRA MARSHALL [facility] [address] [facility] [address],[place] [address] 10/17/2021 10:27:33 10/18/2021 08:57:56 Pain of bilateral knee joints 5691368579 01890 M25.561 will fu with evaluation of her knees Edema of l ower extremity 810371446 R60.0 had full work up prior early this year, heart and lungs are clearproba ble coming from OA in her knees Type 2 horace betes mellitus 86776350 E11.9 recheck her levels Impacted c erumen of bilateral ears 5487564031 975918 H61.23 performed by Carmen Kenney visualized [id number] SAMIRA MARSHALL [facility] [address] [facility], [place] [address] 12/19/2021 13:25:22 12/19/2021 14:11:19 Active or passive immunization 044535903 Z23 patient advised she is due for pneu 23 Adult heal th examination 519693377 Z00.00 BP is fine Body mass index 40+ - severely obese 466794457 Z68.42 discussed diet, what she should be eating and portion size Finger ulcer 286621087 L 98.499 will start with wound dressing and monitoring Advance care planning 71 6505009 Z71.89 advised Type 2 horace betes mellitus 69096048 E11.9 recheck her levels Impacted c erumen of bilateral ears 0960367955 775808 H61.23 performed by Carmen Kenney visualized Generalize d anxiety disorder 93439004 F41.1 will refill [id number] SAMIRA MARSHALL [facility] [address] [facility] [address] [address] 08/28/2022 14:06:13 08/28/2022 15:05:45 Type 2 diabetes mellitus 33781575 E11.9 stable Hypothyroidism 53925812 E03.1 stable Edema of l ower extremity 034090311 R60.0 stable Anxiety 60417217 F41.1 stable Hammer toe 742739701 M20 .40 stable [id number] SAMIRA MARSHALL [facility] [address] [facility], [place] [address] 10/09/2022 13:23:54 10/15/2022 09:45:32 Edema of lower extremity 530544094 R60.0 stable Active or passive immunization 875633785 Z23 patient advised she is due for pneu 23 Adult heal th examination 958112910 Z00.00 BP is fine Body mass index 40+ - severely obese 752783077 Z68.42 discussed diet, what she should be eating and portion size Finger ulcer 703733434 L 98.491 will start with wound dressing and monitoring Generalize d anxiety disorder 55917441 F41.1 will refill her ativanmild palpitatio ns [id number] SAMIRA MARSHALL [facility] [address] [facility],[place] [address] 07/31/2023 09:13:58 07/31/2023 15:11:36 Fatigue 29352201 R53.83 agreed to lab work and urine to narrow down possible causes for her symptoms Type 2 horace betes mellitus 55998563 E11.9 stable Body mass index 40+ - severely obese 937384504 Z68.42 discussed diet, what she should be eating and portion size Skin ulcer 73561238 L98. 491 resolved [id number] SAMIRA MARSHALL [facility] [address] [facility],[place] [address] 10/15/2023 13:21:03 10/16/2023 08:32:26 Active or passive immunization 294177640 Z23 patient advised she is due for pneu 23 Adult heal th examination 378619204 Z00.00 BP is excellent Depression screening 171 463357 Z13.31 negative Chronic ki dney disease stage 2 599230125 N18.2 will monitor levels Impacted c erumen of bilateral ears 0605106921 328146 H61.23 will fu with lavage [id number] SAMIRA MARSHALL [facility] [address] [facility] [address],[place] [address] 10/25/2023 13:40:20 10/25/2023 16:28:04 Impacted cerumen of bilateral ears 8134865954 008267 H61.23 resolved with lavage [id number] SAMIRA MARSHALL [facility] [address] [facility],[place] [address] 02/04/2024 10:48:37 02/04/2024 11:13:34 Dysuria 75936541 R30.0 negative dip Low back pain 663041695 M54.59 conservati ve care Health Concerns Section Related Observation LastModified by Organization Detai ls LastModified Time None Recorded Concern Status LastModified by Organization Details LastModified Time None Recorded Advance Directives Directive None Recorded Payers Encounter Date Sequence Insurance Name Policy Number Policy Carrasco Covered Member ID Carrasco Member ID Guarantor Name 10/09/[address] [place] [address] [id number] Lorrie Parikh [id number] Lorrie Parikh 07/31/2023 [facility] [id number] Lorrie Parikh [id number] Lorrie Parikh 10/15/2023 [facility] [id number] Lorrie Parikh [id number] Lorrie Parikh 10/25/2023 [facility] [id number] Lorrie Parikh [id number] Lorrie Parikh 02/04/2024 [facility] [id number] Lorrie Parikh [id number] Lorrie Parikh Notes Date Note Type Note Provider Name a nd Address Organization Details Recorded Time 3 text/html Annual WellnessReported bypatient.Diet and Nutrition:healthy diet; discussed vitamin and supplement use; discussed portion control; discussed maintaining calcium balance; discussed diet improvement Fracture Risk:no history of fractures; no recent explained fracture; no sudden unexplained fractures; no previous musculoskeletal injuries Physical Activity:exercises on a regular basis; recent increase in physical activity; good physical condition; discussed weightbearing activities; discussed exercise habits Additional Lifestyle Factors:no tobacco use; drinks alcohol (mild-moderate) Depression Risk:never feels sad, empty, or tearful; no loss of interest in activities; no significant changes in weight; no sleep disturbances or insomnia; no agitation; no loss of energy; no feelings of worthlessness or guilt; no thoughts of suicide; no history of depression; no history of mood disorders Hearing:no loss of hearing Vision:no vision problems SAMIRA MARSHALL [address] [place] [address], [phone] 10/09/2022 14:02:32 4 text/html c/o not feeling well The patient is participating in this appointment via telemedicine communication with a phone call/video calling service (Deep [employer])The patient consents to use of these platforms in place of an in-person appointment due to either sick symptoms the patient is presenting with or current office closure due to COVID exposure in order to keep our office staff and patients safe the patient reports that she has been feeling offshe is having headaches, head pain, like sharp shooting pain on the top of her head having epigastric pain, with excess flatulence, burping the patient notes that she is also having reports that she may have a sinus infection? dizziness, the head pain, low energy denies fever or chillsno sob does have some leg swelling, very mild, in one anklegoes away when she lays down uses her CPAP at night nonspecific symptoms, nothing overtly concerning agreed to round of lab work to narrow down the possible causes SAMIRA MARSHALL [address] [place], [address], [facility] 07/31/2023 11:40:14 4 text/html Annual WellnessReported bypatient.Diet and Nutrition:healthy diet; discussed vitamin and supplement use; discussed portion control; discussed maintaining calcium balance; discussed diet improvement Fracture Risk:no history of fractures; no recent explained fracture; no sudden unexplained fractures; no previous musculoskeletal injuries Physical Activity:exercises on a regular basis; recent increase in physical activity; good physical condition Additional Lifestyle Factors:no tobacco use; no alcohol intake; stopped drinking alcohol Depression Risk:never feels sad, empty, or tearful; no loss of interest in activities; no significant changes in weight; no sleep disturbances or insomnia; no agitation; no loss of energy; no feelings of worthlessness or guilt; no thoughts of suicide; no history of depression; no history of mood disorders Hearing:no loss of hearing Vision:no vision problems the patient is doing well BP is excellent recent bw panel was good rheum wants us to monitor her kidney function on the meloxicam needs ear lavage bilateralwill start on debrox SAMIRA MARSHALL [address] [place], [address], [facility] 10/15/2023 13:59:40 4 text/html ear lavage bilateral ear lavage performed by RTpatient tolerated wellTMs visualized after successful lavage pressure and discomfort improved otherwise no other concerns SAMIRA MARSHALL [address] [place], [address], [facility] 10/25/2023 14:10:48 4 text/html c/o uti symptoms the patient reports possible UTI symptomsno burning when she urinates, no frequency of urination, reports that she was having sex and developed low back pain and into the buttock, felt a pulling sensationmost likely pulled a muscle, gluteus probably, when she was having intercourse with her suggested finding alternative positions that will put less strain on her low back warm compresses help, suggested heating pad or icy hot as well SAMIRA MARSHALL [address] [facility], [place], [address], [facility] 02/04/2024 11:13:42 OBGyn Episode No OBEpisode recorded.
[2024-06-30 14:00] VITALS: BP 128/80; PULSE 83; O2SAT 95; BMI 45.5
--- NOTE | 2024-06-30 14:00 | A.OFFVIS_ITS ---
Vital Signs 06/30/24 14:00 Height 5 ft 4 in Weight 265 lb BMI 45.5 BP 128/80 Blood Pressure Location Lt brachial Position Sitting Pulse 83 Pulse Source Pulse Oximeter Pulse Oximetry (%) 95 Oxygen Delivery Method Room Air Intake Visit Reasons: Knee Arthritis Intake Note: Patient presents with arthritis in both knees, right one is worse. Allergies No Known Allergies Allergy (Verified 06/30/24 14:02) HPI Comments Details: Knee pain is controlled at this time. She has gained 3 lb from her last visit 10/2023. Physical Exam Vital Signs: Last Vital Signs Pulse 83 06/30/24 14:00 BP 128/80 06/30/24 14:00 Pulse Ox 95 06/30/24 14:00 Oxygen Delivery Method Room Air 06/30/24 14:00 BMI result Body Mass Index 45.5 Const Other: General: Comfortable Skin: No lesions seen MSK: Tender to palpate bilateral knees. Bilateral knee flexion 100 degrees. No knee effusion. Assessment & Plan Assessment & Plan (1) Osteoarthritis of knees, bilateral: Comment: Pain is controlled on diclofenac 75 mg b.i.d.. We reviewed labs from 04/2024- normal kidney function liver function. She has been to physical therapy in the past but has not been compliant with exercise routine and eating healthy. Code(s): M17.0 - Bilateral primary osteoarthritis of knee Category: Medical Qualifiers: Osteoarthritis type: primary Qualified Code(s): M17.0 - Bilateral primary osteoarthritis of knee Plan: Continue diclofenac 75 mg b.i.d. she has a prescriber at [facility] for diclofenac. I recommend routine monitoring of kidney function and liver function every 6 months minimum on chronic NSAID Encouraged weight loss with healthy eating and exercise. She will review exercise material that she received from physical therapy and tried to do minimum of 30 minute exercises daily. I recommend that she contact PCP for medical management of weight loss as she has failed program with weight watchers and has not been compliant with healthy eating in the last couple of months. Return to clinic in 6 months or sooner if needed (2) Morbid obesity: Code(s): E66.01 - Morbid (severe) obesity due to excess calories Category: Medical Plan: See above Coding Level of Care Code Est Pt Level 3 (56528) Complex EM visit Add On G2211 Diagnoses Primary osteoarthritis of both knees M17.0 Osteoarthritis type: primary Morbid obesity E66.01
== END 2024-06-30 14:39 | disposition home or self-care (01) ==
PROVIDERS: PCP Internal Medicine; Visit Provider Internal Medicine Rheumatology
DX: M17.0 Bilateral primary osteoarthritis of knee (principal); E66.01 Morbid (severe) obesity due to excess calories
CPT/HCPCS: 99213

== ENCOUNTER 2024-10-09 14:48 | Outpatient (REF) | payer OTHER, SELFPAY ==
--- OUTSIDE RECORDS SUMMARY | 2024-10-09 14:50 | XMS_ITS | Data Portability ---
Author Organization ANISH [facility] Address [address] [place] [address] Assessment No assessment recorded. Plan of Treatment Reminders Order Date Submit Date Provider Last Modified By Organization Details Last Modified Time Details Appointments ANNUAL EXAM 2024 01:30P M SAMIRA MARSHALL Not available Not available Not available Lab CMP, serum or plasma 2024 025 [facility], [address] [place] [address], [id number], 09/02/2024 10:00:19 hemoglobi n A1c, QN, blood 2024 025 [facility], [address] [place] [address], [address], 09/02/2024 10:00:18 CBC w/ auto diff 2024 025 [facility], [address] [place] [address], [address], 09/02/2024 10:00:19 lipid panel, blood 2024 025 [facility], [address] [place] [address], [address], 09/02/2024 10:00:19 urinalysi s, dipstick 2023 024 natalia [facility], [address] [facility] [address], [place], [address], 02/04/2024 11:13:45 CMP, serum or plasma 2023 024 [facility], [address] [place] [address], [place], [address], 02/05/2024 11:20:39 CMP, serum or plasma 2023 024 [facility], [address] [place] [address], [address], 02/05/2024 11:20:39 Referral None recorded. Procedures None recorded. Surgeries None recorded. Imaging None recorded. Medication Orders Mounjaro 2.5 mg/0.5 mL subcutane ous pen injector 2024 025 [id number], [address] [place] [address], [address], 09/02/2024 10:06:16 diclofena c sodium 75 mg tablet,de layed release 2024 025 [id number], [address] [place], [address], 09/02/2024 09:36:40 Patient TargetsNo targets recorded. Patient InstructionsNo instructions recorded. Reason for Referral None Reported. Results Created Date Observation Date Name Description Value Unit Range Abnormal Flag Note LastModifiedBy Organization Detail LastModifiedTime 02/04/2002/04/2024 urina lysis , dipst ick Leukocytes Negati ve Not Available [facility] [address] [facility] [address], [place], [address], 02/04/2024 10:59:33 02/04/2002/04/2024 urina lysis , dipst ick Nitrite negati ve Not Available [facility] [address] [facility] [address], [place], [address], 02/04/2024 10:59:33 02/04/2002/04/2024 urina lysis , dipst ick Urobilinogen .2 Not Available [facility] [address] [facility] [address], [place], [address], 02/04/2024 10:59:33 02/04/20 24 02/04/2024 urina lysis , dipst ick Protein Negati ve Not Available [facility] [address] [facility] [address], [place], [address], 02/04/2024 10:59:33 02/04/20 24 02/04/2024 urina lysis , dipst ick pH 6.0 Not Available [facility] [address] [facility] [facility] [address], [place], [address], 02/04/2024 10:59:33 02/04/20 24 02/04/2024 urina lysis , dipst ick Blood Negati ve Not Available [address], [place], [address], 02/04/2024 10:59:33 02/04/20 24 02/04/2024 urina lysis , dipst ick Specific Binger 1.010 Not Available [address], [place], [address], 02/04/2024 10:59:33 02/04/2002/04/2024 urina lysis , dipst ick Ketone Negati ve Not Available [address], [place], [address], 02/04/2024 10:59:33 02/04/2002/04/2024 urina lysis , dipst ick Bilirubin Negati ve Not Available [facility] [address] [facility] [facility] [address] [facility] [address], [place], [address], 02/04/2024 10:59:33 02/04/20 24 02/04/2024 urina lysis , dipst ick Glucose Negati ve Not Available [facility] [address] [facility] [address], [place], [address], 02/04/2024 10:59:33 02/04/20 24 02/04/2024 urina lysis , dipst ick Appearance Clear Not Available [facility] [address] [facility] [address], [place], [address], 02/04/2024 10:59:33 02/04/20 24 02/04/2024 urina lysis , dipst ick Color Yellow Not Available [facility] [address] [facility] [address], [place], [address], 02/04/2024 10:59:33 11/01/19 24 10/04/2023 MAMMO , scree lyle, digit al, bilat eral No observ ation record ed. [facility] [address] [place], [address], 11/01/2023 10:23:22 Result Notes None recorded. Problems Name Problem SNOMED Code Status Onset Date Resolution Date Notes Provider Name and Address Organization Details Recorded Time Impaired fasting glycemia 748689574 Active 2018 Not Available [facility] 2 13:17:45 Type 2 diabetes mellitus 79314715 Active 2020 Not Available [facility] 2 13:17:45 Pain of bilateral knee joints 608717975853 104 Active 2021 Not Available [facility] 2 13:17:45 Edema of lower extremity 675229415 Active 2021 Not Available [facility] 13:17:45 Impacted cerumen of bilateral ears 588919461286 9108 Active 2021 Not Available [facility] 13:17:45 Osteoarth ritis of knee 929216532 Active 2021 Not Available [facility] 2 13:17:45 Generaliz ed anxiety disorder 84460997 Active 2021 Not Available [facility] 2 13:17:45 Acute bronchiti s 04993985 Active 2021 SAMIRA MARSHALL [address] [place] [address], [address], [facility] 2 10:40:48 Cough 25981821 Active 2022 SAMIRA MARSHALL [address] [place] [address], [address], [facility] 3 10:28:45 Hammer toe 083867639 Active 2022 SAMIRA MARSHALL [address] [place] [address], [address], [facility] 3 14:37:30 Finger ulcer 059311245 Active 2022 SAMIRA MARSHALL [address] [place] [address], [address], [facility] 3 13:39:31 Fatigue 63625728 Active 2023 SAMIRA MARSHALL [address] [place] [address], [address], [facility] 4 11:34:48 Skin ulcer 80554005 Active 2023 SAMIRA MARSHALL [address] [place] [address], [address], [facility] 4 11:39:52 Chronic kidney disease stage 2 972789567 Active 2023 SAMIRA MARSHALL [address] [place] [address], [address], [facility] 4 13:42:40 Low back pain 456768650 Active 2023 SAMIRA MARSHALL [address] [place] [address], [address], [facility] 4 11:05:30 Dysuria 50601745 Active 2023 SAMIRA MARSHALL [address] [place] [address], [address], [facility] 4 11:06:19 Obstructi ve sleep apnea syndrome 02642729 Active 2024 SAMIRA MARSHALL [address] [place] [address], [address], [facility] 5 13:28:42 Pain of nose 181862122 Active 2024 SAMIRA MARSHALL [address] [place] [address], [address], [facility] 5 11:00:14 Posterior rhinorrhe a 34826422 Active 2024 SAMIRA MARSHALL [address] [place] [address], [address], [facility] 5 11:01:07 Soft tissue swelling of ankle joint 036343936 Active 2024 SAMIRA MARSHALL [address] [place] [address], [address], [facility] 5 11:03:46 Hyperchol esterolem ia 68616097 Active 2017 Not Available [facility] 2 13:17:45 Gastroeso phageal reflux disease 893216356 Active 2017 Not Available [facility] 2 13:17:45 Obesity 326074449 Active 2017 Not Available [facility] 2 13:17:45 Anxiety 45727367 Active 2017 Not Available [facility] 2 13:17:45 Hypothyro idism 80063932 Active 2017 Not Available [facility] 2 13:17:45 Notes:Some problems listed i n Documents: #[id number], #[id number], #[id number] could not be added to this patient's chart. Please review these documents and add these problems to the patient's chart manually as needed. Problem Notes None recorded. Procedures Surgical History Date Name Laterality Status Provider Name and Address Organization Details Recorded Time 4 Cerumen Removal completed SAMIRA MARSHALL [address] [place] [address], [address], [facility] 10/25/2023 14:10:16 2 Cerumen Removal completed SAMIRA MARSHALL [address] [place], [address], [facility] 10/17/2021 11:13:14 1 Cerumen Removal completed SAMIRA MARSHALL [address] [place], [address], [facility] 04/18/2021 14:02:02 0 Cerumen Removal completed Nohelia JeremieEMMIESTEFF [address] [place], [address], [facility] 09/01/2019 14:42:39 7 Date of Last Pap Smear completed Sandee Boo [facility] 02/17/2019 08:10:56 Imaging Results Imaging Date Name Status LastModified by Organiz ation Details LastModified Time 10/04/2023 MAMMO, screening, digital, bilateral completed [facility] [address] [place], [address], 11/01/2023 10:23:22 Procedure Notes None recorded. Medical Equipment None Reported. Allergies Allergen ID Allergen Name Allergen Category Reaction Reaction Severity Criticality Documentation Date Start Date Code Code System Note Provider Name and Address Organization Details Recorded Time 4877 cortisone medicatio n fever flushing moderate moderate Not available 02/17/2021 2878 RxNorm SAMIRA MARSHALL [address] [place], [address], [facility] 1 10:16:47 Medications Name Sig Start Date Stop [...] BY TOPICAL ROUTE 2 TIMES PER DAY active Not Available Not Available No t Available atorvastati n 80 mg tablet TAKE 1/2 [...] A DAY AFTER A MEAL 30 DAY(S) 07/15 completed Not Available Not Available Not Available Medrol (Klever) 4 mg tablets in [...] AFFECTED AREA(S) TOPICALLY 2 TIMES PER DAY active Not Available Not Available No t Available ranitidine 150 mg tablet BID 08/31 completed Not Available Not Available Not Available gabapentin 300 mg capsule TAKE 2 CAPSULES BY MOUTH TWICE A DAY 2024 active Not Available Not Available Not Avai lable omeprazole 20 mg capsule,del ayed release Take 1 capsule every day by oral route for 90 days. 2024 active Not Available Not Available Not Avai lable diclofenac sodium 75 mg tablet,vahe yed release TAKE 1 TABLET BY MOUTH TWICE A DAY DIRECTED FOR 14 DAYS 09/02 completed Not Available Not Available Not Available codeine 10 mg-guaifene sin 100 mg/5 [...] Not Available Not Available No t Available naproxen 500 mg tablet Take 1 tablet [...] completed Not Available Not Available Not Available Mounjaro 2.5 mg/0.5 mL subcutaneou s pen injector INJECT 2.5 MG SUBCUTANE OUSLY WEEKLY DIRECTED active Not Available Not Available No t Available Vitals Date Recorded Body weight Body mass index (BMI) Body height Heart rate Oxygen saturation Oxygen saturation in Arterial blood by Pulse oximetry Systolic blood pressure Diastolic blood pressure Provider Name and Address Organization Details Last Updated DateTime 4 890762. 54 g 44.7 kg/m2 163.83 cm 80 /min 97 % 97 % 120 mm[Hg] 72 mm[Hg] Aida [facility] 4 13:36:32 Date Recorded Body height Body mass index (BMI) Body weight Heart rate Oxygen saturation Oxygen saturation in Arterial blood by Pulse oximetry Systolic blood pressure Diastolic blood pressure Provider Name and Address Organization Details Last Updated DateTime 4 163.83 cm 40.2 kg/m2 530730. 98 g 74 /min 99 % 99 % 132 mm[Hg] 86 mm[Hg] Dean [facility] 4 10:58:13 Date Recorded Body height Provider Name an d Address Organization Details Last Updated DateTime 07/15/2024 163.83 cm Aida Summers [facility] 07/15/2024 10:48:27 Date Recorded Body height Body mass index (BMI) Body weight Heart rate Oxygen saturation Oxygen saturation in Arterial blood by Pulse oximetry Systolic blood pressure Diastolic blood pressure Provider Name and Address Organization Details Last Updated DateTime 5 163.83 cm 44.7 kg/m2 642866. 46 g 90 /min 98 % 98 % 128 mm[Hg] 86 mm[Hg] Aida [facility] 5 09:43:48 Social History Question Answer Notes LastModified by Organizat ion Details LastModified Time Tobacco Smoking Status Never Smoker [facility] 10/01/2017 16:30:45 What Was The Date Of Your Most Recent Tobacco Screening? 09/02/2024 [email or web address] Information not available 09/02/2024 Sex: Unknown Functional Status None recorded. Mental Status None recorded. Family History Relationship Description Onset Age of this Age Resolved Age Notes LastModified by Organization Details LastModified Time Sister Coronary arterioscler osis 39 yrs old am[place] Not available 02/17/2019 08:14:46 Medical History Condition Response Coronary Artery Disease N Gout N Other N Kidney Stones N Blood Diseases N Blood Transfusion N COPD N Depression N Anxiety Disorder N Muscle, Joint, or Bone Problems N Obesity N Vision or Eye Problems N Arthritis N Polyps N Infertility N Mental Disorder N Cancer N Varicosities N Stroke N Headaches N Fibromyalgia N Kidney Disease N Heart Problems N Hospitalizations N Eating Disorder N Skin Problems N MRSA exposure N Constipation N Tuberculosis N Asthma N Hepatitis N Pulmonary Embolism N Chicken Pox N Autism Spectrum Disorder (ASD) N Breast Cancer N Lung Disease N Defects or Inherited Disease N Endometriosis N Bladder or Kidney Problems N High Cholesterol N Liver Disease N Allergies/Hayfever N Thyroid Problems N GI Problems N Anemia N Mental Illness N Diabetes N Ovarian Cancer N Seizures/Epilepsy N Congestive Heart Failure (CHF) N Eczema N Abuse/Domestic Violence N Diverticulitis N Reflux/GERD N Heart Disease N Hypertension N Osteoporosis N Gynecological History Statement/Question Response Date of Last Pap Smear 04/30/2017 Obstetrics History GPAL:G 0 P 0 0 0 0 Immunizations Vaccine Type Date Status Note Provider Nam e and Address Organization Details Recorded Time COVID-19, mRNA, LNP-S, PF, 100 mcg/0.5mL dose or 50 mcg/0.25mL dose 2 completed Lorrie monk [facility] 08/28/2022 14:08:16 Influenza, split virus, quadrivalent, preservative 2 completed Lorrie monk [facility] 08/28/2022 14:08:16 Influenza, split virus, quadrivalent, preservative 8 completed Lorrie monk [facility] 08/28/2022 14:08:16 Influenza, [place] 4 completed Krystian monk [facility] 03/16/2024 08:22:55 Tdap 7 completed Not Available [facility] 09/08/2021 15:50:21 Influenza, split virus, quadrivalent, preservative 9 completed Lorrie monk [facility] 08/28/2022 14:08:16 Influenza, split virus, quadrivalent, preservative 0 completed Lorrie monk, [facility] 08/28/2022 14:08:16 COVID-19, mRNA, LNP-S, PF, 30 mcg/0.3 mL dose 1 completed Lorrie monk [facility] 08/28/2022 14:08:16 COVID-19, mRNA, LNP-S, PF, 30 mcg/0.3 mL dose 1 completed Lorrie monk [facility] 08/28/2022 14:08:16 Past Encounters Encounter ID Performer Location Encounter Start Date Encounter Closed Date Diagnosis/Indication Diagnosis SNOMED-CT Code Diagnosis ICD10 Code Diagnosis Note [id number] Chris Wynne [facility] [address], [place] [address] 10/02/2017 14:29:08 10/02/2017 17:01:37 Pre-surgery evaluation 289887001 Z01.818 carpal tunnel Generalize d anxiety disorder 56314464 F41.1 stable, prn lorazepam Impaired f asting glycemia 619383341 R73.01 A1C 6.0, encourage weight loss Hypothyroidism 40509865 E03.9 stable Hypercholesterolemia 136 78711 E78.00 [place] [id number] Chris Wynne [address],[place] [address] 04/28/2018 13:39:39 04/28/2018 15:47:46 Gastroesophageal reflux disease 326885553 K21.9 Dysfunctio n of eustachian tube 04751350 H69.91 Hypercholesterolemia 136 79474 E78.00 continue atorvastat in Hypothyroidism 43376384 E03.9 stable Excessive cerumen in ear canal 565272559 H61.23 [id number] Chris Wynne [address], [place] [address] 07/07/2018 16:16:43 07/07/2018 16:52:25 Dizziness 995887845 R42 call if no better 7-10 days Hypothyroidism 23947986 E03.9 stable Anxiety 29973342 F41.9 discussed [id number] Chris Wynne [facility] [address] [facility],[place] [address] 11/21/2018 15:18:44 11/21/2018 16:19:59 Sprain of knee 46325701 S83.90XA RICE Hypothyroidism 78693955 E03.9 Anxiety 37942603 F41.9 Adult heal th examination 027489598 Z00.00 Body mass index 40+ - severely obese 290882893 Z68.42 Vitamin D deficiency 347 50289 E55.9 [id number] Chris Wynne [facility] [address] [facility],[place] [address] 01/23/2019 13:41:48 01/23/2019 16:31:51 Obesity 230546263 E66.9 Hypothyroidism 18070512 E03.9 done 10/2018 Impaired f asting glycemia 796907206 R73.01 will get a1c at cpe Gastroesop hageal reflux disease 019798753 K21.9 on ranitidine Upper resp iratory infection 65146839 J06.9 likely viral mucinex - dm sudafed as needed [id number] Chris Wynne [facility] [address] [facility],[place] [address] 02/17/2019 13:19:09 02/17/2019 14:04:42 Renewal of prescription 983109216 Z76.0 Hypercholesterolemia 136 88235 E78.00 Anxiety 27444141 F41.9 Adult heal th examination 612307355 Z00.00 Active or passive immunization 202673582 Z23 Gastroesop hageal reflux disease 898816354 K21.9 on ranitidine Impaired f asting glycemia 671652648 R73.01 will get a1c at cpe Hypothyroidism 55488764 E03.9 done 10/2018 Obesity 411494319 E66.9 Increased blood pressure 16621348 R03.0 normal, will continue to monitor Pain of le ft shoulder joint 6652233560 4898534 M25.512 exam suggestive of impingemen t stretch,re st ice consider PT Pain in toe 369287866 M7 9.674 normal exam Inguinal pain 722355806 R10.2 ttp in the RLQ, overall mild no bulging will monitor - if worsens or doesn't resolve will f/u [id number] Chris Wynne DO [facility] [address] [facility], [place] [address] 09/01/2019 13:41:21 09/01/2019 14:45:34 Hypercholesterolemia 33782583 E78.00 Anxiety 89792372 F41.9 Gastroesop hageal reflux disease 642902719 K21.9 stopped ranitidine due ot recall now on omeprazole Impaired f asting glycemia 584832551 R73.01 will get a1c at cpe Hypothyroidism 60828425 E03.9 done 10/2018 Obesity 550184379 E66.9 Increased blood pressure 94583356 R03.0 normal, will continue to monitor Body mass index 40+ - severely obese 985252328 Z68.42 Swelling o f ankle joint 846427110 M25.473 not present today elevate, limit sodium, get up and walk around not painful Impacted c erumen of bilateral ears 5503903539 353412 H61.23 successful [id number] Chris Wynne [facility] [address] [facility], [place] [address] 08/23/2020 14:18:14 08/23/2020 16:42:40 Active or passive immunization 459687431 Z23 has finished covid vacc Adult heal th examination 248343989 Z00.01 long detailed discussion re labwork etc will need to rechk after her apnea is treated Depression screening 171 861211 Z13.31 seems to be down at times but is noted to be stressed at times Impaired f asting glycemia 038486144 R73.01 a1c is near diabetes at a1c 6.6 Hypothyroidism 11744715 E03.9 will have her rechk a tsh Hypercholesterolemia 136 98913 E78.00 Obstructiv e sleep apnea syndrome 40312333 G47.33 [id number] Chris Wynne [facility] [address] [facility],[place] [address] 12/12/2020 14:00:16 12/12/2020 14:21:05 Family history of Cardiovascular disease 024124594 Z82.49 will fu with cardiac testing due to her cousin having a [place] and family history of heart disease Pain of le ft elbow joint 0712782666 8503690 M25.522 will fu with XR Type 2 horace betes mellitus 07537034 E11.9 will recheck her labs [id number] Chris Wynne [facility] [address] [facility],[place] [address] 02/17/2021 09:45:07 02/17/2021 11:18:33 Allergic reaction to drug 914288006 T50.905A possible cortisone allergy/re actionwill eventually clear from system, will have her use bendryl and pepcid in the mean time [id number] Chris Wynne [facility] [address] [facility],[place] [address] 04/10/2021 11:57:59 04/10/2021 14:04:45 Benign paroxysmal positional vertigo 437034353 H81.13 instructed to let PT know about the vertigo to adjust her exercises Impacted c erumen of bilateral ears 5602507383 972731 H61.23 will have her use debrox and fu next week Nausea 794861297 R11.0 will start on zofran for nausea [id number] Chris Wynne [facility] [address] [facility],[place] [address] 04/18/2021 13:27:20 04/18/2021 16:18:19 Anxiety 52048921 F41.1 needs refill Body mass index 40+ - severely obese 838452358 Z68.42 discussed diet, what she should be eating and portion size Type 2 horace betes mellitus 19387254 E11.9 discussed A1c results from previous elercR3y is good at 6.7% Benign par oxysmal positional vertigo 820980828 H81.13 will add meclizine Nausea 037965843 R11.0 will try another medication for the nausea Finger ulcer 997902846 L 98.499 will start with wound dressing and monitoring [id number] Chris Wynne [facility] [address] [facility],[place] [address] 05/22/2021 11:37:17 05/22/2021 14:52:20 Dyspnea 295029768 R06.02 will fu with testingwou ld like to exclude PE given recent surgery [id number] Chris IreneHarinder Sherrell [facility] [address] [facility],[place] [facility] [place] [address] 10/17/2021 10:27:33 10/18/2021 08:57:56 Pain of bilateral knee joints 7455670230 01190 M25.561 will fu with evaluation of her knees Edema of l ower extremity 930651309 R60.0 had full work up prior early this year, heart and lungs are clearproba ble coming from OA in her knees Type 2 horace betes mellitus 52597440 E11.9 recheck her levels Impacted c erumen of bilateral ears 8647923759 075546 H61.23 performed by Carmen Kenney visualized [id number] Chris BonillaHarinder Sherrell [facility] [address] [facility],[place] [facility] [place] [address] 12/19/2021 13:25:22 12/19/2021 14:11:19 Active or passive immunization 529712839 Z23 patient advised she is due for pneu 23 Adult heal th examination 993641103 Z00.00 BP is fine Body mass index 40+ - severely obese 240418346 Z68.42 discussed diet, what she should be eating and portion size Finger ulcer 902214227 L 98.499 will start with wound dressing and monitoring Advance care planning 71 5284257 Z71.89 advised Type 2 horace betes mellitus 21865392 E11.9 recheck her levels Impacted c erumen of bilateral ears 1136642131 408423 H61.23 performed by Carmen Kenney visualized Generalize d anxiety disorder 99139941 F41.1 will refill [id number] Chris Wynne [facility] [address] [facility],[place] [address] 08/28/2022 14:06:13 08/28/2022 15:05:45 Type 2 diabetes mellitus 01371840 E11.9 stable Hypothyroidism 39560826 E03.1 stable Edema of l ower extremity 748888683 R60.0 stable Anxiety 77739148 F41.1 stable Hammer toe 598924196 M20 .40 stable [id number] Chris Wynne [facility] [address] [facility],[place] [address] 10/09/2022 13:23:54 10/15/2022 09:45:32 Edema of lower extremity [id number] R60.0 stable Active or passive immunization [id number] Z23 patient advised she is due for pneu 23 Adult heal th examination 219593258 Z00.00 BP is fine Body mass index 40+ - severely obese 421436539 Z68.42 discussed diet, what she should be eating and portion size Finger ulcer 136608670 L 98.491 will start with wound dressing and monitoring Generalize d anxiety disorder 56336490 F41.1 will refill her ativanmild palpitatio ns [id number] Chris Wynne [facility] [address] [facility],[place] [address] 07/31/2023 09:13:58 07/31/2023 15:11:36 Fatigue 06679211 R53.83 agreed to lab work and urine to narrow down possible causes for her symptoms Type 2 horace betes mellitus 76126244 E11.9 stable Body mass index 40+ - severely obese 963816538 Z68.42 discussed diet, what she should be eating and portion size Skin ulcer 59489744 L98. 491 resolved [id number] [facility] [address] [facility] [address] 10/15/2023 13:21:03 10/16/2023 08:32:26 Active or passive immunization 320387743 Z23 patient advised she is due for pneu 23 Adult heal th examination 996896899 Z00.00 BP is excellent Depression screening 171 783086 Z13.31 negative Chronic ki dney disease stage 2 703612404 N18.2 will monitor levels Impacted c erumen of bilateral ears 6867880817 422383 H61.23 will fu with lavage [id number] Chris Wynne [facility] [address] [facility] [address] 10/25/2023 13:40:20 10/25/2023 16:28:04 Impacted cerumen of bilateral ears 1406934786 308801 H61.23 resolved with lavage [id number] Chris Wynne [facility] [address] [facility] [address] 02/04/2024 10:48:37 02/04/2024 11:13:34 Dysuria 26741739 R30.0 negative dip Low back pain 930465568 M54.59 conservati ve care [id number] Chris Wynne [facility] [address] [facility] [address] 07/15/2024 10:45:10 07/15/2024 11:53:45 Pain of nose 559527198 J34.89 recommende d christina for the feltonKierra cloud for the inflammati on nasal passageway sand anti inflammato ry; no steroids Posterior rhinorrhea 758 36922 R09.82 recommende d continuing her allergy medication Soft tissu e swelling of ankle joint 143560704 R22.43 recommende d [id number] Chris Wynne [facility] [address] [facility] [address] 09/02/2024 09:34:03 09/02/2024 12:00:41 Type 2 diabetes mellitus 80533698 E11.9 stable negative foot exam will try putting in for the mounjaro Obstructiv e sleep apnea syndrome 85353123 G47.33 working on getting new CPAP Generalize d anxiety disorder 42132378 F41.1 stable Gastroesop hageal reflux disease 928885092 K21.9 continue on omeprazole dietary changessle ep propped up at night Chronic ki dney disease stage 2 492623537 N18.2 stable Depression screening 171 118051 Z13.31 negative Body mass index 40+ - severely obese 569300087 Z68.42 discussed diet, what she should be eating and portion sizeadding on mounjaro Health Concerns Section Related Observation LastModified by Organization Detai ls LastModified Time None Recorded Concern Status LastModified by Organization Details LastModified Time None Recorded Advance Directives Directive None Recorded Payers Encounter Date Sequence Insurance Name Policy Number Policy Carrasco Covered Member ID Carrasco Member ID Guarantor Name 10/15/2023 1 [facility] [id number] Lorrie Parikh [id number] Lorrie Parikh 10/25/2023 1 [facility] [id number] Lorrie Parikh [id number] Lorrie Parikh 02/04/2024 1 [facility] [id number] Lorrie Parikh [id number] Lorrie Parikh 07/15/2024 1 [facility] [id number] Lorrie Parikh [id number] Lorrie Parikh 09/02/2024 1 [facility] [id number] Lorrie Parikh [id number] Lorrie Parikh Notes Date Note Type Note Provider Name a nd Address Organization Details Recorded Time 4 text/html Annual WellnessReported bypatient.Diet and Nutrition:healthy [...] bilateralwill start on debrox SAMIRA MARSHALL [address] [place], [address], [facility] 10/15/2023 13:59:40 4 text/html ear lavage bilateral ear lavage performed by RTpatient tolerated wellTMs visualized after successful lavage pressure and discomfort improved otherwise no other concerns SAMIRA MARSHALL [address] [place], [address], [facility] 10/25/2023 14:10:48 4 text/html [...] icy hot as well SAMIRA MARSHALL [address] [place], [address], [facility] 02/04/2024 11:13:42 5 text/html c/o nose pain the patient has inflammation of her nasal passageways probably due to combination of dry air and allergiesdoes use a CPAPrecommended humidifier, Vaseline, anti inflammatoryfor the dryness and to help restore healthy moist tissue the patient agrees to this plan will f/u if no improvement medication verified on her list SAMIRA MARSHALL [address] [place], [address], [facility] 07/15/2024 11:11:01 5 text/html c/o acid reflux GERD: the patient reports that she is getting acid reflux in the morning, the patient reports that it is usually epigastric pain, feeling it in her throat nowalso worsens with laying flat on her stomach last colonoscopy/endoscopy was 9 years ago, will be do at the end of the year discussed diet, the patient is going to work with her insurance who has a paper inspector she can consult withshe is going to set up a meeting currently on omeprazole, the patient is doing well overall discussed sleep apnea, needs new machine, told her to call her insurance to see who was else will supply a CPAP will start her on mounjaro to help with weight, diabetes and sleep apnea SAMIRA MARSHALL [address] [place], [address], [place] [facility] 09/02/2024 10:11:02 OBGyn Episode No OBEpisode recorded.
--- OUTSIDE RECORDS SUMMARY | 2024-10-09 14:50 | XMS_ITS ---
Author Organization [facility] Address [address] [place] [address] Care Team Providers Care Metal Sander Name Role Phone Sherrell BAHENA, Chris Primary Care Provider UnavailFaizan Marks Unavailable [phone] Encounters Encounter Location Date Provider Diagnosis [address] [address] 07/21/2024 Faizan Bruner Plan Of Treatment Next Appt Details Provider Name:Faizan Bruner , 09/28/2025 01:30:00 PM, [address] [place] [address], [address], Progress Notes * Lorrie FULTON MDOB: 5 (59 yo F)Acc No.[id number]:07/21/2024 Progress Note Patient:?Lucía FULTONblaze Arellano Provider:?Faizan Bruner DPM :1965???Age:59 Y???Sex:Female D ate:07/21/2024 Address: [address] [id number] Pcp:Chris Wynne MD Subjective: * Chief Complaints: * ??? * Medical History:? Objective: * Vitals:? Assessment: Plan: * Treatment: * Images: * The named appointment provid er may or may not be the originator of this progress note, and it is not deemed complete until electronically signed by the appointment provider. Sign off status: Pending * Provider:Sophie Bruner DPM Date:?2024 Generated for Ila pedersen/Jose/Tiff on:?10/09/2024 02:50 PM EDT
--- OUTSIDE RECORDS SUMMARY | 2024-10-09 14:50 | XMS_ITS | Continuity of Care Document ---
Author Organization [facility] Address [address] [facility] [address] [place] [address] Insurance Providers Payer Plan Claims Address Claims Phone Policy Number Group Number Relation Employer Guarantor Name Guarantor Guarantor Address Guarantor Phone [facility] [address] [facility] [address] [address] tel: [phone] [place] [address] [facility] [address] tel:[phone]OU[address] FULTON [address] [place] [address] Problems Condition ICD9 code ICD10 code SNOMED code Start Date End Date S tatus Encounter for screening for other metabolic disorders Z13.228 Results Test Value / Unit Interpretation Reference Ran Albumin/Creatinine Ratio,Uri ne[431990]?Collected: 08/29/2024 03:57 PM?Specimen Received: 08/29/2024 05:00 AM?Source: [facility] Creatinine, Urine [392253] 87.8 mg/dL N ot Estab. mg/dL Albumin, Urine [849790] 6.9 ug/mL Not Estab. ug/mL Alb/Creat Ratio [719679] 8 mg/g creat 0-2 9 mg/g creat Normal: 0 - 29 Moderately i ncreased: 30 - 300 Severely increased: >300 Comp. Metabolic Panel (14)[3 02882]?Collected: 08/29/2024 02:10 PM?Specimen Received: 08/29/2024 05:00 AM?Source: [facility] Glucose [295510] 128 mg/dL H 70-99 mg/dL BUN [328012] 11 mg/dL 6-24 mg/dL Creatinine [668682] 0.72 mg/dL 0.57-1.0 0 mg/dL eGFR [552334] 96 mL/min/1.73 >59 mL/min/1 .73 BUN/Creatinine Ratio [656198] 15 9-23 Sodium [890310] 141 mmol/L 134-144 mmol /L Potassium [141765] 4.3 mmol/L 3.5-5.2 m mol/L Chloride [816447] 105 mmol/L 96-106 mmo l/L Carbon Dioxide, Total [714299] 21 mmol/L 20-29 mmol/L Calcium [451111] 9.6 mg/dL 8.7-10.2 mg /dL Protein, Total [682507] 6.8 g/dL 6.0- 8.5 g/dL Albumin [367622] 4.7 g/dL 3.8-4.9 g/d L Globulin, Total [435471] 2.1 g/dL 1.5 -4.5 g/dL Bilirubin, Total [009393] 0.4 mg/dL 0. 0-1.2 mg/dL Alkaline Phosphatase [055397] 145 IU/L H 44-121 IU/L AST (SGOT) [033123] 19 IU/L 0-40 IU/ L ALT (SGPT) [761299] 17 IU/L 0-32 IU/ L Lipid Panel[685918]?Collected: 08/29/2024 02:10 PM?Specimen Received: 08/29/2024 05:00 AM?Source: [facility] Cholesterol, Total [762330] 185 mg/dL 100-199 mg/dL Triglycerides [615976] 168 mg/dL H 0-149 mg/dL HDL Cholesterol [612475] 38 mg/dL L >39 mg/dL VLDL Cholesterol Wilber [917071] 30 mg/dL 5-40 mg/dL LDL Chol Calc ([facility]) [420986] 117 mg/dL H 0-99 mg/dL Albumin/Creatinine Ratio,Uri ne[183166]?Collected: 08/29/2024 02:10 PM?Specimen Received: 08/29/2024 05:00 AM?Source: [facility] Creatinine, Urine [689761] TNP mg/dL Test not performed. Patient was unable to provide a self-collectedspecimen for the requested testing. The following test(s) were notperformed: Albumin, Urine [733164] TNP Test not performed Hemoglobin A1c[559101]?Collected: 08/29/2024 02:10 PM?Specimen Received: 08/29/2024 05:00 AM?Source: [facility] Hemoglobin A1c [072512] 6.9 % H 4.8- 5.6 % . Prediabetes: 5.7 - 6.4 Madhavi betes: >6.4 Glycemic control for adults with diabetes: 7.0 Request Problem[577327]?Collected: 08/29/2024 02:10 PM?Specimen Received: 08/29/2024 05:00 AM?Source: [facility] Request Problem [543121] TNP Test not performed. Patient was unable to provide a self-collectedspecimen for the requested testing. The following test(s) were notperformed: TEST: 063662 Albumin/Creatinine Ratio,Urine Allergies, adverse reactions, alerts No known allergies and adverse reactions Medications No administered medications reported Vital Signs No vital signs reported Social History No smoking Hx information available
--- OUTSIDE RECORDS SUMMARY | 2024-10-09 14:51 | XMS_ITS ---
Author Organization [facility] Address [address] [place] [address] Care Team Providers Care Dot Etcher Apprentice Name Role Phone Chris Wynne MD Primary Care Provider UnavailFaizan Marks Unavailable [phone] REASON FOR VISIT rs appt 07/21/24 Encounters Encounter Location Date Provider Diagnosis [address] [address] 09/17/2023 Faizan Bruner Plan Of Treatment Next Appt Details Provider Name:Faizan Bruner , 09/28/2025 01:30:00 PM, [address] [place], [address], Progress Notes * Lorrie FULTON MDOB: 5 (58 yo F)Acc No.[id number]:09/17/2023 Patient:?Jl Lorrie Arellano :1965???Age:58 Y???Sex:Female Address[address] [place] [address] * true * Date:? Generated for Printi ng/Fakimg/eTransmitting on:?10/09/2024 02:51 PM EDT
--- OUTSIDE RECORDS SUMMARY | 2024-10-09 14:51 | XMS_ITS ---
Author Organization [facility] Address [address] [place] [address] Care Team Providers Care School Bus Driver/Mechanic Name Role Phone Sherrell BAHENA, Chris Primary Care Provider Faizan Naranjo Unavailable [phone] Allergies No Known Allergies REASON FOR VISIT At Risk Footcare, Toe Irritation Medications Medication SIG (Take, Route, Frequency, Duration) Notes Start Date End Date Status Night Splint AFO - L1930 as directed 04/17/2016 Not-Taking Ranitidine & Diet Manage Prod 150 MG as directed Orally Not -Taking Calcium + D Not-Taki ng Simvastatin Not-Taki ng Ranitidine HCl Not-T aking Extra Depth Orthopedic Shoes (1 Pair) with Customized Heat Molded Multidensity Innersoles (3 Pair) as directed Dx: NIDDM/Polyneuropathy (E11.42), Hammertoe Foot Deformity (M20.41,M20.42), Preulcerative Skin Lesion(s) (L85.1 Active PARoxetine HCl 10 MG Orally Active Omeprazole 20 MG 1 capsule 30 minutes before morning meal Orally Once a day for 30 day(s) Active metFORMIN HCl 500 MG 1 tablet with a storm l Orally Once a day Active Vitamin D3 50 MCG (1999 UT) Orally Once a day Active Levothyroxine Sodium 75 MCG 1 tablet in the morning on an empty stomach Orally Once a day Active Gabapentin 300 MG 1 capsule Orally Onc e a day Active Atorvastatin Calcium 40 MG 1 tablet Orally Once a day for 30 day(s) Active Diclofenac 75mg twice a day Active LORazepam 0.5 MG Orally Act idania Social History Tobacco Use: Social History Observation Description Date Details (start date - stop date) Never Smoker NA - NA Tobacco use other than smoking: Question Answer Notes Are you an other tobacco user? No Tobacco Control (Standard) Question Answer Notes Tobacco use: Nonsmoker Additional Findings: Tobacco non-user Current no nsmoker AUDIT-C (Standard) Question Answer Notes Did you have a drink containing alcohol in the p ast year? No Points 0 Interpretation Negative Vital Signs Height 5 ft 4 in in 09/29/2024 Weight 265 lbs 09/29/2024 BMI 45.48 kg/m2 09/29/2024 Encounters Encounter Location Date Provider Diagnosis [facility] [address] [address] 09/29/2024 Faizan Bruner Type 2 diabetes mellitus with diabetic polyneuropathy E11.42 ; Other hammer toe(s) (acquired), right foot M20.41 and Other hammer toe(s) (acquired), left foot M20.42 Assessments Encounter Date Diagnosis (ICD Code) Assessment Notes Treatment Notes Treatment Clinical Notes Section Notes 09/29/2024 Type 2 diabetes mellitus with diabetic polyneuropathy (ICD-10 - E11.42) 09/29/2024 Other hammer toe(s) (acquired), right foot (ICD-10 - M20.41) Patient Educated with: DIABETIC FOOT CARE INSTRUCTIONS. pdf (DIABETIC FOOT CARE INSTRUCTIONS. pdf) 09/29/2024 Other hammer toe(s) (acquired), left foot (ICD-10 - M20.42) Plan Of Treatment Medication Medication Name Sig Start Date Stop Date Notes Extra Depth Orthopedic Shoes (1 Pair) with Customized Heat Molded Multidensity Innersoles (3 Pair) as directed Dx: NIDDM/Polyneuropathy (E11.42), Hammertoe Foot Deformity (M20.41,M20.42), Preulcerative Skin Lesion(s) (L85.1 Treatment Notes Assessment Notes Other hammer toe(s) (acquired), right fo ot Patient Educated with: DIABETIC FOOT CARE INSTRUCTIONS.pdf (DIABETIC FOOT CARE INSTRUCTIONS.pdf) Next Appt Details Follow Up: 1 Year, Reason: Provider Name:Faizan Bruner , 09/28/2025 01:30:00 PM, [address] [place], [address], Progress Notes * Lorire FULTON MDOB: 5 (59 yo F)Acc No.[id number]:09/29/2024 Progress Note Patient:?Lorrie FULTON Provider:?Faizan Bruner DPM :1965???Age:59 Y???Sex:Female D ate:09/29/2024 Address: [address] [facility] Pcp:Chris Wynne MD Subjective: * Chief Complaints: * ???At Risk FootcareToe Irrit ation * HPI: ???At Risk footcare:?Pt States Last PCP Visit:?Date?08/12/2024 ???Toe pain:?Location:?B/L feet.?Duration:?several years.?Course:?worse.?Aggravated by:?shoes, any pressure.?Treatments:?change in shoes.? * ROS:?General/Constitutional:?Nausea?denies.?Vomiting?denies.?Hunger Thirst?denies.?Loss appetite?denies.?Chills?denies.?Fatigue?denies.?Fever?denies.?Night Sweats?denies.?Unexplained weight loss?denies.?Unexplained weight gain?denies.?HEENTM:?Dentures?denies.?Dizziness?denies.?Glasses/contacts?admits.?Retinopathy?den ies.?Blurred/double vision?denies.?TMJ?denies.?Discharge/drainage?denies.?Implants?denies.?Sore throat?denies.?Dental implants?denies.?Hard of hearing ?admits.?Difficulty chewing/swallowing/speaking?denies.?Nose bleeds?denies.?Sore mouth?denies.?Respiratory:?On O xygen?denies.?Pneumonia/pleurisy?denies.?Bronchitis?denies.?Emphysema?denies.?Co ughing?denies.?Cough blood?denies.?Shortness of breath?denies.?Wheezing?denies.?Cardiovascular:?Pacemaker?denies.?MVP?denies.?WPW?denies.?CHF?denies.?Heart attack?denies.?Septal defect?denies.?Rapid beat?denies.?Chest pain ?denies.?Atrial Fib.?denies.?Murmur/Palpitations?denies.?Gastrointestinal:?Hemorrhoids?denies.?Stomach/Abdominal pain?denies.?Dark blood stool?denies.?Irritable bowel ?denies.?Constipation?denies.?Diarrhea?denies.?Hematology:?Swelling?admits.?Clots?denies.?Varicose Veins?denies.?Bruising?denies.?Bleeding problem?denies.?Genitourinary:?Blood urine?denies.?Frequent/Painfu/urination/bladder control?denies.?Kidney stones?admits.?Infection (UTI)?denies.?Nephropathy?denies.?sex trans dis (STD)?denies.?Prostate?denies.?Musculoskeletal:?Hammertoes?admits.?Bunions?denies.?Back Pain?denies.?Muscle Cramps/ Resting?denies.?Muscle cramps / walking?denies.?Generalized aches and pains?denies.?Weakness?denies.?Integ.:?Uribe?denies.?Scars?denies.?Corns/calluses?admits.?Ingrown nails?denies.?Painful nails?denies.?Open Sores?denies.?Rashes?denies.?Neurologic:?Difficulty sleeping?denies.?Brain disorder?denies.?Numbness?admits.?Balance trouble?denies.?Confusion?denies.?Fainting/blackouts?denies.?Tingling?admits, bilateral lower extremities, in the toes, that is moderate, which is intermittent.?Tremors?denies.? * Medical History:? * Surgical History:? s ection 1991deviated septum repair 1996carpal tunnel right hand surgery, Carpal tunnel surgery left hand 10/11/2017, 10/2017arthroscopic right knee surgery - tear mencius 11/19/2016 * Hospitalization/Major Diagno stic Procedure:?Denies Past Hospitalization * Family History:?Mother: dece ased, diagnosed with Diabetic - NIDDM, Unspecified essential hypertension.?Father: alive, diagnosed with Family history of arthritis.?Maternal Grand Father: heart attack, diagnosed with Unspecified heart disease.?Siblings: late sister, diagnosed with Diabetic - NIDDM.? * Social History:?Tobacco Use:?Tobacco use other than smoking?Are you an other tobacco user??No ?Tobacco Control (Standard)?Tobacco use:?Nonsmoker ?Additional Findings: Tobacco non-user?Current nonsmoker ???Drugs/Alcohol:?Drugs?Have you used drugs other than those for medical reasons in the past 12 months??No ???Miscellaneous:?Caffeine: yes, 1-2 cups per day. ?Children: yes, 2. ?Exercise: walk a little/ride bike. ?Marital status: . 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 ???Drug/Alcohol:?AUDIT-C (Standard)?Did you have a drink containing alcohol in the past year??No ?Points?0 ?Interpretation?Negative * Medications:?TakingDiclofena c , Notes to Pharmacist: 75mg twice a dayAtorvastatin Calcium 40 MG Tablet 1 tablet Orally Once a day Gabapentin 300 MG Capsule 1 capsule Orally Once a day Levothyroxine Sodium 75 MCG Tablet 1 tablet in the morning on an empty stomach Orally Once a day LORazepam 0.5 MG Tablet Orally metFORMIN HCl 500 MG Tablet 1 tablet with a meal Orally Once a day Omeprazole 20 MG Capsule Delayed Release 1 capsule 30 minutes before morning meal Orally Once a day PARoxetine HCl 10 MG Tablet Orally Vitamin D3 50 MCG (2000 UT) Capsule Orally Once a day Extra Depth Orthopedic Shoes (1 Pair) with Customized Heat Molded Multidensity Innersoles (3 Pair) as directed Dx: NIDDM/Polyneuropathy (E11.42), Hammertoe Foot Deformity (M20.41,M20.42), Preulcerative Skin Lesion(s) (L85.1 Taking Diclofenac , Notes to Pharmacist: 75mg twice a dayTaking Atorvastatin Calcium 40 MG Tablet 1 tablet Orally Once a day Taking Gabapentin 300 MG Capsule 1 capsule Orally Once a day Taking Levothyroxine Sodium 75 MCG Tablet 1 tablet in the morning on an empty stomach Orally Once a day Taking LORazepam 0.5 MG Tablet Orally Taking metFORMIN HCl 500 MG Tablet 1 tablet with a meal Orally Once a day Taking Omeprazole 20 MG Capsule Delayed Release 1 capsule 30 minutes before morning meal Orally Once a day Taking PARoxetine HCl 10 MG Tablet Orally Taking Vitamin D3 50 MCG (2000 UT) Capsule Orally Once a day Taking Extra Depth Orthopedic Shoes (1 Pair) with Customized Heat Molded Multidensity Innersoles (3 Pair) as directed Dx: NIDDM/Polyneuropathy (E11.42), Hammertoe Foot Deformity (M20.41,M20.42), Preulcerative Skin Lesion(s) (L85.1 Not-Taking/PRNRanitidine HCl Simvastatin Calcium + D Ranitidine & Diet Manage Prod 150 MG Miscellaneous as directed Orally Night Splint AFO - L1930 as directed Medication List reviewed and reconciled with the patientNot-Taking/PRN Ranitidine HCl Not-Taking/PRN Simvastatin Not-Taking/PRN Calcium + D Not-Taking/PRN Ranitidine & Diet Manage Prod 150 MG Miscellaneous as directed Orally Not-Taking/PRN Night Splint AFO - L1930 as directed Medication List reviewed and reconciled with the patient * Allergies:?N.K.D.A.yes[Aller gies Verified] Objective: * Vitals:?Ht:5 ft 4 in, Wt:265 , BMI:45.48, Shoe size:7-8, BS:85, Ht-cm: 162.56 cm, Wt-k.2 kg. * ???Past Orders: ???Lab:HEMOGLOBIN A1C (GLYCO HEMOGLOBIN) (Order Date - 07/27/2024) (Collection Date & Time - 09/29/2024 01:30 PM) ? Value Reference Range ?HEMOGLOBIN A1C % (HH) 6.5 * Examination: ???Ophthalmology Referral: ?DIABETES EYE EXAM?Procedure Performed:?Yes ?Date of Exam Performed?06/24/2023 ?Diabetic Retinopathy Screening:?Yes ?Retinal Screening Performed:?Yes ?Findings of Diabetic Eye Exam:?no retinopathy?Neurological: ?SENSORY:? Neurological exam demonstrates, reduced light touch sensation, reduced sharp/dull pin prick discrimination , reduced vibration sensation, B/L, 5.07 monofilament test performed at plantar aspects of 5 varied sites per foot shows sensation, reduced , at Forefoot, B/L.?DEEP TENDON REFLEXES:?Achilles, 0-1/4, B/L.?Dermatologic: ?SKIN FINDINGS:? Skin exam reveals Keratotic lesion(s) located at,?Plantar, Heel(s) , B/L .?Orthopedic: ?MUSCLE STRENGTH:?5/5 all groups in a symmetrical fashion , B/L.?FOOT MORPHOLOGY:? Pes Planus structure, No Charcot collapse/destruction noted at MTJ.?DIGITAL DEFORMITIES:?Digital contracture, PIPJ, 2-5 B/L, incompl-reducible to push-up test, no over, nor underlapping,?with evidence of shoe producing skin irritation.?FOOTWEAR EVALUATION:?worn, OT were inspected and noted to be severely worn , in poor condition not giving proper support at the present time, shoe gear properties exacerbate patient's foot/toe deformity .?Vascular: ?DP PULSES (B):? 1, B/L.?PT PULSES (B):? 05/30, B/L.?CAPILLARY FILL TIME:? 3 secs. per digit, B/L.?TROPHIC CONDITION-TEXTURE/ELASTICITY/TURGOR/HAIR GROWTH (B):?normal, B/L.?TEMPERTURE GRADIENT (C):? decreased, cool to cool, proximal to distal, B/L.?PIGMENTATION:?pale, B/L.?EDEMA (C):?3/, non-pitting, without aching pain, B/L, Ankle(s), Feet.?General Examination: ?GENERAL APPEARANCE:?Reveals a pleasant, alert, well nourished, well- developed, well hydrated individual, who demonstrates proper attention to hygiene/body habitus, and is in no acute distress, Pt serves as own historian for office visit today.?ORIENTED:?person, place, and time.?FOOT EXAM:?Lower Extremity Neurological Exam performed:?Yes ?Visual exam of foot performed:?Yes ?Date?09/29/2024 ?Footwear Evaluation?Footwear Evaluation performed:?Yes??? Assessment: * Assessment: 1.?Other hammer toe(s) (acqu ired), right foot - M20.41???Specify :Chronic problem, Worse (4),Rx Management (4)???2.?Type 2 diabetes mellitus with diabetic polyneuropathy - E11.42 (Primary) ??3.?Other hammer toe(s) (acquired), left foot - M20.42???Specify :Chronic problem, Worse (4),Rx Management (4)??? Plan: * Treatment: * Procedure Codes:? * Preventive Medicine:? ??Counseling:?Discussion:?-14: Office or other outpatient visit for the evaluation and management of an established patient, which required a medically appropriate history and/or examination and MODERATE level of DECISION MAKING for: 1 OR MORE CHRONIC PROBLEM(S) THATS WORSENING, 2 STABLE CHRONIC PROBLEMS, A NEWLY DIAGNOSED PROBLEM WITH UNCERTAIN PROGNOSIS, AN ACUTE COMPLICATED INJURY WITH MULTIPLE TREATMENT OPTIONS, OR AN ACUTE PROBLEM WITH ACCOMPANYING SYSTEMIC SYMPTOMS, THAT POSE(S) A MODERATE RISK OF MORBIDITY. THIS CONDITION MAY ALSO INCLUDE RX DRUG MANAGEMENT, OR A DECISON FOR MINOR SURGERY. The visit on the day of the encounter encompassed interpreting the data and educating the patient as to the nature of their condition, treatment options available according to their individual PMH, meds, allergies, and overall health/living conditions, as well as any potential risks or complications that may occur from a failure to adhere to, and participate in, the recommended course of therapy. The discussion included a complete verbal, and/or written explanation of the examination results, any x-rays taken, the proposed diagnosis, and outline of the treatment plan. A schedule for future care needs was also explained. The patient verbalized an understanding of the instructions at this time and agreed to be an active participant in their treatment. If the patient should think of any questions or concerns after the visit, I have encouraged the patient to call the office.?Digital Surgery:?Digital surgery was discussed with the patient, We elected to try conservative treatment at the present time, due to the patients medical history and increased asssociated post-operative risks.?Digital Treatment:?HT- I explained to the patient the possible etiologies of Hammertoes, including genetics/foot type/shoegear/activity level/exercise routine and the risks/benefits of all the different treatment options for their pain including: No treatment at all, Rest, Ice, New/supportive/wider/deeper Shoegear, Digital Padding/Strapping/Taping/Bracing/Gel protective sleeves, Foot/Ankle AFO Bracing, Stretching exercises, Deep Tissue Massage, Arch support/shoe inserts with splay metatarsal padding, and Custom orthoses. I insisted that any digital devices be removed daily and not worn overnight for safety. The patient is to carefully examine the toes daily for any skin irritation while using any splinting or padding device. The advantages and disadvantages of each option were discussed and the patients questions re: shoegear, padding, custom vs prefabricated inserts, activity level, and consistency in home treatment regimens for optimal success were answered to their verbally confirmed satisfaction.?Shoe Gear Counseling:?SHOE Rx - The patient was counseled in great detail on their muscoloskeletal foot and toe deformities which coincided with the dermatological presentations visualized on exam. We discussed how their deformities put the integrity of their feet at risk for potential pedal complications which makes the accomidative diabetic shoes and cutomizable inserts medically necessary. We discussed the different shoe and insert treatment types and options, as well as the important advantages for adhering to regularly wearing these accomidative devices daily. The patient was made aware of the fact that a failure to abide by these recommedations may be deleterious to their foot health as they are able to prevent many pedal complications such as skin irritation, skin ulceration, infection, and even loss of toe/foot/leg/or life. Time was also spent with the patient dispensing and discussing proper diabetic footcare techniques including daily skin moisturization, daily foot inspection for any interruption in skin integrity including open lesions, or sign of infection such as redness/malodor/drainage/swelling. Also discussed and recommended were procedures regarding daily shoe inspection for the presence of internal foreign bodies as well as any visualized irregular shoe or insert wear. Patient questions re: shoes, inserts, and self foot inspections were answered to their satisfaction as the patient verbally confirmed a full understanding of the above information. A Rx for Extra Depth Orthopedic Shoes with 3 pair of custom heat-molded inserts was dispensed.? ??Screening/Special Tests:?Fall Risk?Screening:?No falls in the past year ?FALLS: Screening for Future Fall Risk?Have you had any falls with injury in the past year??No * Follow Up:?1 Year * Images: * Sign off status: Completed true * Provider:?Faizan Bruner DPM Date:?2024 Generated for Ila pedersen/Jose/eTransmitting on:?10/09/2024 02:50 PM EDT History and Physical Notes * HPI (History of Present Illness) Category Sub-Category Detail Notes Category Not es Toe pain Location: B/L feet Duration: several years Course: worse Aggravated by: shoes, any pressure Treatments: change in shoes At Risk footcare Pt States Last PCP Visit: Date: 5 Examination Category Sub-Category Detail Notes Category Not es Neurological SENSORY: Neurological exa m demonstrates, reduced light touch sensation, reduced sharp/dull pin prick discrimination , reduced vibration sensation, B/L, 5.07 monofilament test performed at plantar aspects of 5 varied sites per foot shows sensation, reduced , at Forefoot, B/L DEEP TENDON REFLEXES: Achilles, 0-1/4, B /L Dermatologic SKIN FINDINGS: Skin exam reveal s Keratotic lesion(s) located at, Plantar, Heel(s) , B/L Orthopedic FOOT MORPHOLOGY: Pes Planus stru cture, No Charcot collapse/destruction noted at MTJ FOOTWEAR EVALUATION: worn, OT were inspe cted and noted to be severely worn , in poor condition not giving proper support at the present time, shoe gear properties exacerbate patient's foot/toe deformity DIGITAL DEFORMITIES: Digital contracture , PIPJ, 2-5 B/L, incompl-reducible to push-up test, no over, nor underlapping, with evidence of shoe producing skin irritation MUSCLE STRENGTH: 5/5 all groups in a symmetrical fashion , B/L General Examination GENERAL APPEARANCE: Reveals a pleasant, alert, well nourished, well-developed, well hydrated individual, who demonstrates proper attention to hygiene/body habitus, and is in no acute distress, Pt serves as own historian for office visit today FOOT EXAM: Lower Extremity Neurological Exa m performed:: Yes Visual exam of foot performed:: Yes Date: 09/29/2024 ORIENTED: person, place, and t alanna Footwear Evaluation Footwear Evaluation performe d:: Yes Ophthalmology Referral DIABETES EYE EXAM Procedure Perform ed:: Yes ?Date of Exam Performed: 06/24/2023 Diabetic Retinopathy Screening:: Yes Retinal Screening Performed:: Yes Findings of Diabetic Eye Exam:: no retin opathy Vascular DP PULSES (B): 1/4, B/L PT PULSES (B): 1/4, B/L CAPILLARY FILL TIME: 3 secs. per digit, B/L TEMPERTURE GRADIENT (C): decreased, cool to cool, proximal to distal, B/L TROPHIC CONDITION-TEXTURE/ELASTICITY/TURGOR/HAIR GROWTH (B): normal, B/L EDEMA (C): 3/4, non-pitting, wi thout aching pain, B/L, Ankle(s), Feet PIGMENTATION: pale, B/L
--- OUTSIDE RECORDS SUMMARY | 2024-10-09 14:51 | XMS_ITS | Patient Health Record ---
Author Organization [facility] Address [address] [place] [address] Care Team Providers Care Records Analysis Manager Name Role Phone Sherrell BAHENA, Chris Primary Care Provider Faizan Naranjo Unavailable [phone] Allergies No Known Allergies Results Component Value Reference Range Notes HEMOGLOBIN A1C (GLYCOHEMOGLO BIN) Reviewed date:09/29/2024 01:31:19 PM Interpretation: Performing Lab: Notes/Report: HEMOGLOBIN A1C % (HH) 6.5 Reason For Referral No Information Medications Medication SIG (Take, Route, Frequency, Duration) Notes Start Date End Date Status Levothyroxine Sodium 75 MCG 1 tablet in the morning on an empty stomach Orally Once a day Active Gabapentin 300 MG 1 capsule Orally Onc e a day Active Atorvastatin Calcium 40 MG 1 tablet Orally Once a day for 30 day(s) Active Extra Depth Orthopedic Shoes (1 Pair) with Customized Heat Molded Multidensity Innersoles (3 Pair) as directed Dx: NIDDM/Polyneuropathy (E11.42), Hammertoe Foot Deformity (M20.41,M20.42), Preulcerative Skin Lesion(s) (L85.1 Active Diclofenac 75mg twice a day Active PARoxetine HCl 10 MG Orally Active Omeprazole 20 MG 1 capsule 30 minutes before morning meal Orally Once a day for 30 day(s) Active metFORMIN HCl 500 MG 1 tablet with a storm l Orally Once a day Active LORazepam 0.5 MG Orally Act idania Simvastatin Not-Taki ng Ranitidine HCl Not-T aking Vitamin D3 50 MCG (2000 UT) Orally Once a day Active Night Splint AFO - L1930 as directed 04/17/2016 Not-Taking Ranitidine & Diet Manage Prod 150 MG as directed Orally Not -Taking Calcium + D Not-Taki ng Immunizations Vaccine Route Administration Date Status Comme nts COVID-19 Pfizer BioNTech Vaccine Unknown 07/09/2020 Administered 1st 06/18/2020 2nd 07/09/2020 Influenza Unknown 03/29/2021 Administered Social History Tobacco Use: Social History Observation [...] ast year? No Points 0 Interpretation Negative Problems Problem Type SNOMED Code ICD Code Onset Dates Problem Status W/U Status Risk Notes Problem Acquired hammer toe of right foot (7861177219608476 ) Other hammer toe(s) (acquired), right foot (M20.41) Active confirmed Problem Acquired hammer toe of left foot ([id number] ) Other hammer toe(s) (acquired), left foot (M20.42) Active confirmed Problem Polyneuropathy due to type 2 diabetes mellitus (846707462) Type 2 diabetes mellitus with diabetic polyneuropathy (E11.42) Active confirmed Vital Signs Height 5 ft 4 in in 09/29/2024 Weight 265 lbs 09/29/2024 BMI 45.48 kg/m2 09/29/2024 Encounters Encounter Location Date Provider Diagnosis [facility] [address] [address] 09/29/2024 Faizan Bruner Type 2 diabetes mellitus with diabetic polyneuropathy E11.42 ; Other hammer toe(s) (acquired), right foot M20.41 and Other hammer toe(s) (acquired), left foot M20.42 Assessments Encounter Date Diagnosis (ICD Code) Assessment Notes Treatment Notes Treatment Clinical Notes Section Notes 09/29/2024 Other hammer toe(s) (acquired), right foot (ICD-10 - M20.41) Patient Educated with: DIABETIC FOOT CARE INSTRUCTIONS. pdf (DIABETIC FOOT CARE INSTRUCTIONS. pdf) 09/29/2024 Type 2 diabetes mellitus with diabetic polyneuropathy (ICD-10 - E11.42) 09/29/2024 Other hammer toe(s) (acquired), left foot (ICD-10 - M20.42) Plan Of Treatment Pending Test Test Name Order Date X ray : Foot, left 3V 02/09/2013 75410- Debride <25 sq cm 11/15/2014 07673 I&D ABSCESS- SIMPLE,SINGLE 015 81291 I&D ABSCESS- SIMPLE,SINGLE 015 19815,[id number] TENDON SHEATH/LIGAMENT 1 50,I2620-DEZ TENDON SHEATH/LIGAMENT 1 06/07/201254692,[id number] TENDON SHEATH/LIGAMENT 1 06/13/201508052,[id number] TENDON SHEATH/LIGAMENT 1 06/17/2015 Next Appt Details Provider Name:Faizan Bruner , 09/28/2025 01:30:00 PM, [address] [place], [address], Insurance Providers Payer Name Payer Address Payer Phone Subscriber Number Group Number Insured Name Patient Relationship to Insured Coverage Start Date Coverage End Date [facility] [address] [place] [id number] Lorrie Parikh Self - patient is the insured Medical (General) History Medical History History ICD Code thyroid reflux cholesterol Anxiety Neuropathy Reflux ( GERD) Chicken pox Type 2 diabetes mellitus without complic ations E11.9 type II diabetes Surgical History Surgery Date(Month/Year) section 1990 deviated septum repair 1995 carpal tunnel right hand surgery, Carpal tunnel surgery left hand 10/11/2017, 10/2017 arthroscopic right knee surgery - tear m encius 11/19/2016
== END 2024-10-09 14:49 | disposition home or self-care (01) ==
LOC: HO.MAMMO 14:48
PROVIDERS: Visit Provider Internal Medicine
DX: Z12.31 Encounter for screening mammogram for malignant neoplasm of breast (principal)
CPT/HCPCS: 77063; 77067

== ENCOUNTER → 2024-10-09 15:00 | Outpatient (BNV) | payer OTHER, SELFPAY | PROVIDERS: Visit Provider Internal Medicine | DX: Z12.31 Encounter for screening mammogram for malignant neoplasm of breast (principal) | CPT/HCPCS: 77063; 77067 ==

== ENCOUNTER 2024-10-31 07:07 | Outpatient (REF) | payer OTHER, SELFPAY ==
[2024-10-31 07:21] LABS: MANUAL DIFF FLAG NO
[2024-10-31 07:56] LABS: Basophils Percent Auto 0.5 % (0-2); Eosinophils Absolute Auto 0.2 X10*3/uL (0.0-0.4); Eosinophils Percent Auto 2.4 % (0-4); Hematocrit 41.5 % (37.0-47.0); Hemoglobin 14.1 g/dl (12.0-16.0); Imm Gran Abs Auto 0.02 X10*3/uL (0.00-0.03); Imm Gran Pct Auto 0.3 % (0.0-0.4); Lymphocytes Absolute Auto 1.8 X10*3/uL (1.2-4.9); Mean Corpuscular Hemoglobin 32.4 pg (27.0-33.0); Mean Corpuscular Volume 95.4 fL (80.0-98.0); Monocytes Absolute Auto 0.4 X10*3/uL (0.1-1.2); Monocytes Percent Auto 6.6 % (2-11); Neutrophils Percent Auto 62.2 % (45-73); Platelet Count 187 X10*3/uL (160-400); Red Blood Count 4.35 X10*6/uL (4.20-5.50); Red Cell Distribution Width 12.9 % (11.0-16.0); White Blood Count 6.4 X10*3/uL (4.8-10.8)
[2024-10-31 08:08] LABS: Estimated Average Glucose 128 mg/dL; Hemoglobin A1c % 6.1 % (<6.0)
[2024-10-31 08:33] LABS: Alanine Aminotransferase 24 U/L (0-31); Albumin Level 4.8 g/dL (3.5-5.0); Alkaline Phosphatase 89 U/L (39-117); Anion Gap 11 (12-20); Aspartate Amino Transferase 23 U/L (5-31); Bilirubin Total 0.4 mg/dL (0.0-1.0); Blood Urea Nitrogen 18 mg/dL (9-16); Calcium 9.9 mg/dL (8.4-10.2); Carbon Dioxide 26 mmol/L (22-29); Chloride 110 mmol/L (96-108); Cholesterol 166 mg/dL (<200); Estimated Glomerular Filt Rate > 60; Glucose Random 109 mg/dL (60-115); HDL Cholesterol 39 mg/dL (>40); LDL Cholesterol Calculated 106 mg/dL (<100); Potassium 4.6 mmol/L (3.3-5.1); Sodium 142 mmol/L (135-145); Total Protein 7.3 g/dL (6.5-8.0); Triglycerides 106 mg/dL (<150)
== END 2024-10-31 07:08 | disposition home or self-care (01) ==
LOC: HO.LABR 07:07
PROVIDERS: PCP Physician Assistant; Visit Provider Internal Medicine
DX: E11.9 Type 2 diabetes mellitus without complications (principal)
CPT/HCPCS: 36415; 80053; 80061; 83036; 85025

== ENCOUNTER 2024-12-29 12:36 | Outpatient (AMB) | payer OTHER, SELFPAY ==
--- OUTSIDE RECORDS SUMMARY | 2024-07-21 09:30 | XMS_ITS ---
Author Organization [facility] Address [address] [place] [address] Care Team Providers Care Zone Manager Name Role Phone Sherrell BAHEAN, Chris Primary Care Provider Unavailabl Faizan Low Unavailable [phone] Encounters Encounter Location Date Provider Diagnosis [address] [address] 07/21/2024 Faizan Bruner Plan Of Treatment Next Appt Details Provider Name:Faizan Bruner , 09/28/2025 01:30:00 PM, [address] [place] [address], [phone], Progress Notes * Lorrie FULTON MDOB: 5 (59 yo F)Acc No.[id number]:07/21/2024 Progress Note Patient: Lorrie JOHNSON Provider: Elodia Bruner DPM :1965 A ge:59 Y S ex:Female Date:07/21/2024 Address: [address] [id number] Pcp:Chris Wynne MD Subjective: * Chief Complaints: [...] 07/21/2024 Generated for Ila Quinones on: 0 12/29/2024 01:10 PM EDT
[2024-12-29 12:38] VITALS: BP 100/82; PULSE 82; O2SAT 100; BMI 41.4
--- NOTE | 2024-12-29 12:38 | MHC.OFFVIS ---
Vital Signs 12/29/24 12:38 Height 5 ft 4 in Weight 241 lb BMI 41.4 BP 100/82 Blood Pressure Location Lt brachial Position Sitting Pulse 82 Pulse Source Pulse Oximeter Pulse Oximetry (%) 100 Oxygen Delivery Method Room Air Intake Visit Reasons: 6 Months Intake Note: Patient presents with arthritis in both knees, right one is worse. Accompanied by: Self / Same As Patient Allergies No Known Allergies Allergy (Verified 12/29/24 12:39) HPI HPI 6 Months: Details: Loosing weight with Mounjaro. 24Lb since last visit. Using diclofenac 75mg daily from BID. She also reduced gabapentin dose from 600 mg b.i.d. to 300 mg b.i.d.. She had a vacation at [place] and experienced increased knee pain, which has subsided. She was very happy that she was able to do all the walking that she did during her recent trip wears in the past she would have had dyspnea. She had labs done in September and reports that kidney and liver function were fine when she followed up with her PCP. Physical Exam Vital Signs: Last Vital Signs Pulse 82 12/29/24 12:38 BP 100/82 12/29/24 12:38 Pulse Ox 100 12/29/24 12:38 Oxygen Delivery Method Room Air 12/29/24 12:38 BMI result Body Mass Index 41.4 Const Other: General: Comfortable Skin: No lesions seen MSK: No tenderness of bilateral knees. Knee flexion 100 degrees. No knee effusion. Assessment & Plan Assessment & Plan (1) Osteoarthritis of knees, bilateral: Comment: Pain is controlled on diclofenac 75 mg daily. She lost 24 lb on Mounjaro. She would like to try to get off of diclofenac and gabapentin. Gabapentin was prescribed by a spinal doctor for back and leg pain. We discussed the role of gabapentin, which is also used to treat knee pain from osteoarthritis. Code(s): M17.0 - Bilateral primary osteoarthritis of knee Category: Medical Qualifiers: Osteoarthritis type: primary Qualified Code(s): M17.0 - Bilateral primary osteoarthritis of knee Plan: She will reduce diclofenac to 50 mg daily. I recommend that she contact PCP for new prescription of diclofenac. After a month if knee pain is still controlled, she will discontinue diclofenac. I recommend routine monitoring of kidney function and liver function every 6 months minimum on chronic NSAID if she requires to use diclofenac for pain control. We also discussed the use of diclofenac 50 mg prn knee pain She will tapered off of diclofenac 1st. If pain is controlled, she will then reduce gabapentin to 300 mg daily Encouraged weight loss with healthy eating and exercise. I congratulated her on her weight loss. 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
--- OUTSIDE RECORDS SUMMARY | 2024-12-29 13:10 | XMS_ITS | Patient Health Record ---
Author Organization [facility] Address [address] [place] [address] Care Team Providers Care Coding Validator Name Role Phone Suleman (RETIRED) [place] Primary Care Provide r Unavailable Vincent Campoverde Unavailable [phone] Reason For Referral No Information Medications Medication SIG (Take, Route, Frequency, Duration) Notes Start Date End Date Status Vitamin D3 800 1 tablet Orally Once a day Active Gabapentin 300 MG 1 capsule Orally QHS Active Levothyroxine Sodium 75 MCG 1 tablet Ora lly Once a day Active Ranitidine HCl 150 MG 1 capsule Orally T wice a day Active PARoxetine HCl 10 MG 1 tablet in the mor lyle Orally Once a day Active LORazepam 0.5 MG 1 tablet as needed Orally Twice a day Active metFORMIN HCl 500 MG 1 tablet with meals Orally Once a day Active Simvastatin 40 MG 1 tablet in the even ing Orally Once a day Active MoviPrep 100 GM as directed Orally a s directed for 1 dose 09/28/2014 Active Calcium 600 + D 600-200 MG-UNIT Orally Active Problems Problem Type SNOMED Code ICD Code Onset Dates Problem Status W/U Status Risk Notes Problem Pre-surgery evaluation (514656149) Other specified pre-operative examination (V72.83) Active confirmed Problem Colon cancer screening (282943941) Colon cancer screening (V76.51) Active confirmed Problem Gastroesophageal reflux disease (239632312) GERD (gastroesophag eal reflux disease) (530.81) Active confirmed Plan Of Treatment Pending Test Test Name Order Date GI BIOPSY 03/04/2015 Future Test Test Name Order Date UPPER GI ENDOSCOPY 09/28/2014 COLONOSCOPY 09/28/2014 Insurance Providers Payer Name Payer Address Payer Phone Subscriber Number Group Number Insured Name Patient Relationship to Insured Coverage Start Date Coverage End Date [facility] [address] [facility] [place] [phone] [id number] DOUG FULTON Self - patient is the insured Medical (General) History Medical History History ICD Code NIDDM Denies CA,CVA,Lung disease,renal disease Cardiac ablation in 2000 Hyperlipidemia Hypothyroidism Anxiety GERD Taking Gabapentin for pelvic pain Surgical History Surgery Date(Month/Year) section 1990 deviated septum repair 1995
--- OUTSIDE RECORDS SUMMARY | 2024-12-29 13:10 | XMS_ITS | Continuity of Care Document ---
Author Organization [facility] Address [address] [facility] [address] [place] [address] Insurance Providers Payer Plan Claims Address Claims Phone Policy Number Group Number Relation Employer Guarantor Name Guarantor Guarantor Address Guarantor Phone [facility] [address] [facility] [address], [place] [address] tel: [phone] Self DOUG FULTON [address] [place] [address] [facility] [address] tel:[phone] Self DOUG FULTON [address] [place] [address] Problems Condition ICD9 code ICD10 code SNOMED code Start Date End Date S tatus Encounter for screening for other metabolic disorders Z13.228 Results Test Result Date/Time Value / Unit Interp. Refere nce Range Albumin/Creatinine Ratio,Uri ne[[id number]] Collected: 08/29/2024 03:57 PM Specimen Received: 08/29/2024 05:00 AM Source: [facility] Creatinine, Urine [[id number]] 09/01/2024 05:53 PM 87.8 mg/dL Not Estab. m g/dL Albumin, Urine [460995] 09/01/2024 06:10 PM 6.9 ug/mL Not Estab. ug/mL Alb/Creat Ratio [039549] 09/01/2024 06:10 PM 8 mg/g creat 0-29 mg/g creat Normal: 0 - 29 Moderately in creased: 30 - 300 Severely increased: >300 Comp. Metabolic Panel (14)[3 16419] Collected: 08/29/2024 02:10 PM Specimen Received: 08/29/2024 05:00 AM Source: [facility] Glucose [[id number]] 08/30/2024 12:30 PM 128 mg/dL H 70-99 mg/dL BUN [232655] 08/30/2024 12:30 PM 11 mg/dL 6-2 4 mg/dL Creatinine [474587] 08/30/2024 12:30 PM 0.72 mg/dL 0.57-1.00 mg/dL eGFR [211587] 08/30/2024 12:30 PM 96 mL/min/1.73 >59 mL/min/1.73 BUN/Creatinine Ratio [226176] 08/30/2024 12:30 PM 15 9-23 Sodium [629687] 08/30/2024 12:30 PM 141 mmol/L 134-144 mmol/L Potassium [515488] 08/30/2024 12:30 PM 4.3 mmol/L 3.5-5.2 mmol/L Chloride [070463] 08/30/2024 12:30 PM 105 mmol/L 96-106 mmol/L Carbon Dioxide, Total [044520] 08/30/2024 12:30 PM 21 mmol/L 20-29 mmol/L Calcium [498984] 08/30/2024 12:30 PM 9.6 mg/dL 8.7-10.2 mg/dL Protein, Total [835660] 08/30/2024 12:30 PM 6.8 g/dL 6.0-8.5 g/dL Albumin [101570] 08/30/2024 12:30 PM 4.7 g/dL 3.8-4.9 g/dL Globulin, Total [726445] 08/30/2024 12:30 PM 2.1 g/dL 1.5-4.5 g/dL Bilirubin, Total [518119] 08/30/2024 12:30 PM 0.4 mg/dL 0.0-1.2 mg/dL Alkaline Phosphatase [692521] 08/30/2024 12:30 PM 145 IU/L H 44-121 IU/L AST (SGOT) [708874] 08/30/2024 12:30 PM 19 IU/L 0-40 IU/L ALT (SGPT) [932773] 08/30/2024 12:30 PM 17 IU/L 0-32 IU/L Lipid Panel[470066] Collected: 08/29/2024 02:10 PM Specimen Received: 08/29/2024 05:00 AM Source: [facility] Cholesterol, Total [[id number]] 08/30/2024 11:27 AM 185 mg/dL 100-199 mg/d L Triglycerides [761990] 08/30/2024 11:28 AM 168 mg/dL H 0-149 mg/dL HDL Cholesterol [943220] 08/30/2024 11:27 AM 38 mg/dL L >39 mg/dL VLDL Cholesterol Wilber [274568] 08/30/2024 11:28 AM 30 mg/dL 5-40 mg/dL LDL Chol Calc (NIH) [040225] 08/30/2024 11:28 AM 117 mg/dL H 0-99 mg/dL Albumin/Creatinine Ratio,Uri ne[230663] Collected: 08/29/2024 02:10 PM Specimen Received: 08/29/2024 05:00 AM Source: [facility] Creatinine, Urine [[id number]] 09/01/2024 12:43 AM TNP mg/dL Test not performed. Patient was unable to provide a self-collectedspecimen for the requested testing. The following test(s) were notperformed: Albumin, Urine [[id number]] 09/01/2024 12:43 AM TNP Test not performed Hemoglobin A1c[159587] Collected: 08/29/2024 02:10 PM Specimen Received: 08/29/2024 05:00 AM Source: [facility] Hemoglobin A1c [463901] 08/30/2024 11:27 AM 6.9 % H 4.8-5.6 % . Prediabetes: 5.7 - 6.4 Madhavi betes: >6.4 Glycemic control for adults with diabetes: 7.0 Request Problem[[id number]] Collected: 08/29/2024 02:10 PM Specimen Received: 08/29/2024 05:00 AM Source: [facility] Request Problem [[id number]] 09/01/2024 12:43 AM TNP Test not performed. Patient was unable to provide a self-collectedspecimen for the requested testing. The following test(s) were notperformed: TEST: [id number] Albumin/Creatinine Ratio,Urine Allergies, adverse reactions, alerts No known allergies and adverse reactions Medications No administered medications reported Vital Signs No vital signs reported Social History No smoking Hx information available
--- OUTSIDE RECORDS SUMMARY | 2024-12-29 13:10 | XMS_ITS | Continuity of Care Document ---
Author Organization [facility] Address [address] [facility] [address] [place] [address] Insurance Providers Payer Plan Claims Address Claims Phone Policy Number Group Number Relation Employer Guarantor Name Guarantor Guarantor Address Guarantor Phone [facility] [address] [facility] [address], [place] [address] tel: [phone] [id number] Self DOUG FULTON [address] [place] [address] [facility] [place] [address] tel:[phone] [id number] [phone] Self DOUG FULTON [address] [place] [address] Problems Condition ICD9 code ICD10 code SNOMED code Start Date End Date S tatus Encounter for screening for other metabolic disorders Z13.228 Results Test Result Date/Time Value / Unit Interp. Refere nce Range Albumin/Creatinine Ratio,Uri ne[339827] Collected: 08/29/2024 03:57 PM Specimen Received: 08/29/2024 05:00 AM Source: [facility] Creatinine, Urine [[id number]] 09/01/2024 05:53 PM 87.8 mg/dL Not Estab. m g/dL Albumin, Urine [[id number]] 09/01/2024 06:10 PM 6.9 ug/mL Not Estab. ug/mL Alb/Creat Ratio [669240] 09/01/2024 06:10 PM 8 mg/g creat 0-29 mg/g creat Normal: 0 - 29 Moderately in creased: 30 - 300 Severely increased: >300 Comp. Metabolic Panel (14)[3 83979] Collected: 08/29/2024 02:10 PM Specimen Received: 08/29/2024 05:00 AM Source: [facility] Glucose [[id number]] 08/30/2024 12:30 PM 128 mg/dL H 70-99 mg/dL BUN [750863] 08/30/2024 12:30 PM 11 mg/dL 6-2 4 mg/dL Creatinine [271698] 08/30/2024 12:30 PM 0.72 mg/dL 0.57-1.00 mg/dL eGFR [893251] 08/30/2024 12:30 PM 96 mL/min/1.73 >59 mL/min/1.73 BUN/Creatinine Ratio [794335] 08/30/2024 12:30 PM 15 9-23 Sodium [967771] 08/30/2024 12:30 PM 141 mmol/L 134-144 mmol/L Potassium [701261] 08/30/2024 12:30 PM 4.3 mmol/L 3.5-5.2 mmol/L Chloride [700696] 08/30/2024 12:30 PM 105 mmol/L 96-106 mmol/L Carbon Dioxide, Total [331989] 08/30/2024 12:30 PM 21 mmol/L 20-29 mmol/L Calcium [738790] 08/30/2024 12:30 PM 9.6 mg/dL 8.7-10.2 mg/dL Protein, Total [657071] 08/30/2024 12:30 PM 6.8 g/dL 6.0-8.5 g/dL Albumin [524680] 08/30/2024 12:30 PM 4.7 g/dL 3.8-4.9 g/dL Globulin, Total [140958] 08/30/2024 12:30 PM 2.1 g/dL 1.5-4.5 g/dL Bilirubin, Total [296107] 08/30/2024 12:30 PM 0.4 mg/dL 0.0-1.2 mg/dL Alkaline Phosphatase [871945] 08/30/2024 12:30 PM 145 IU/L H 44-121 IU/L AST (SGOT) [905515] 08/30/2024 12:30 PM 19 IU/L 0-40 IU/L ALT (SGPT) [578512] 08/30/2024 12:30 PM 17 IU/L 0-32 IU/L Lipid Panel[280887] Collected: 08/29/2024 02:10 PM Specimen Received: 08/29/2024 05:00 AM Source: [facility] Cholesterol, Total [[id number]] 08/30/2024 11:27 AM 185 mg/dL 100-199 mg/d L Triglycerides [996490] 08/30/2024 11:28 AM 168 mg/dL H 0-149 mg/dL HDL Cholesterol [248068] 08/30/2024 11:27 AM 38 mg/dL L >39 mg/dL VLDL Cholesterol Wilber [075264] 08/30/2024 11:28 AM 30 mg/dL 5-40 mg/dL LDL Chol Calc (NIH) [892559] 08/30/2024 11:28 AM 117 mg/dL H 0-99 mg/dL Albumin/Creatinine Ratio,Uri ne[325167] Collected: 08/29/2024 02:10 PM Specimen Received: 08/29/2024 05:00 AM Source: [facility] Creatinine, Urine [[id number]] 09/01/2024 12:43 AM TNP mg/dL Test not performed. Patient was unable to provide a self-collectedspecimen for the requested testing. The following test(s) were notperformed: Albumin, Urine [646727] 09/01/2024 12:43 AM TNP Test not performed Hemoglobin A1c[357714] Collected: 08/29/2024 02:10 PM Specimen Received: 08/29/2024 05:00 AM Source: [facility] Hemoglobin A1c [119891] 08/30/2024 11:27 AM 6.9 % H 4.8-5.6 % . Prediabetes: 5.7 - 6.4 Madhavi betes: >6.4 Glycemic control for adults with diabetes: 7.0 Request Problem[[id number]] Collected: 08/29/2024 02:10 PM Specimen Received: 08/29/2024 05:00 AM Source: [facility] Request Problem [[id number]] 09/01/2024 12:43 AM TNP Test not performed. Patient was unable to provide a self-collectedspecimen for the requested testing. The following test(s) were notperformed: TEST: [id number] Albumin/Creatinine Ratio,Urine Allergies, adverse reactions, alerts No known allergies and adverse reactions Medications No administered medications reported Vital Signs No vital signs reported Social History No smoking Hx information available
== END 2024-12-29 13:02 | disposition home or self-care (01) ==
LOC: HO.RHES 12:37
PROVIDERS: PCP Internal Medicine; Visit Provider Internal Medicine Rheumatology
DX: M17.0 Bilateral primary osteoarthritis of knee (principal); E66.01 Morbid (severe) obesity due to excess calories
CPT/HCPCS: 99213; G2211

== ENCOUNTER 2025-02-13 07:03 | Outpatient (REF) | payer OTHER, SELFPAY ==
--- OUTSIDE RECORDS SUMMARY | 2024-07-21 09:30 | XMS_ITS ---
Author Organization [facility] Address [address] [place] [address] Care Team Providers Care X Ray Equipment Mechanic Name Role Phone Sherrell BAHENA, Chris Primary Care Provider Unavailabl Faizan Low Unavailable [phone] Encounters Encounter Location Date Provider Diagnosis [address] [address] 07/21/2024 Faizan Bruner Plan Of Treatment Next Appt Details Provider Name:Faizan Bruner , 09/28/2025 01:30:00 PM, [address] [place] [address], [address], Progress Notes * Lorrie FULTON MDOB: 5 (59 yo F)Acc No.[id number]:07/21/2024 Progress Note Patient: Lorrie JOHNSON Provider: Elodia Bruner DPM :1965 A ge:59 Y S ex:Female Date:07/21/2024 Address: [address] [id number] Pcp:Chris Wynne MD Subjective: * Chief Complaints: [...] 0 07/21/2024 Generated for Ila Quinones on: 0 02/13/2025 07:05 AM EDT
--- OUTSIDE RECORDS SUMMARY | 2025-02-13 07:06 | XMS_ITS | Patient Health Record ---
Author Organization [facility] Address [address] [place] [address] Care Team Providers Care Associate Quality Engineer Name Role Phone Suleman (RETIRED) [place] Primary Care Provide r Unavailable Vincent Campoverde Unavailable [phone] Reason For Referral No Information Medications Medication [...] W/U Status Risk Notes Problem Pre-surgery evaluation (941038316) Other specified pre-operative examination (V72.83) Active confirmed Problem Colon cancer screening (819011863) Colon cancer screening (V76.51) Active confirmed Problem Gastroesophageal reflux disease (535902926) GERD (gastroesophag eal reflux disease) (530.81) Active confirmed Plan Of Treatment Pending Test Test Name Order Date GI BIOPSY 03/04/2015 Future Test Test Name Order Date UPPER GI ENDOSCOPY 09/28/2014 COLONOSCOPY 09/28/2014 Insurance Providers Payer Name Payer Address Payer Phone Subscriber Number Group Number Insured Name Patient Relationship to Insured Coverage Start Date Coverage End Date [facility] [address] [facility] [place] [phone] [id number] DOUG FULTON Self - patient is the insured Medical (General) History Medical History History ICD Code NIDDM Denies [place],CVA,Lung disease,renal disease Cardiac ablation in 2000 Hyperlipidemia Hypothyroidism Anxiety GERD Taking Gabapentin for pelvic pain Surgical History Surgery Date(Month/Year) section 1990 deviated septum repair 1995
--- OUTSIDE RECORDS SUMMARY | 2025-02-13 07:06 | XMS_ITS | Continuity of Care Document ---
Author Organization [facility] Address [address] [facility] [address] [place] [address] Insurance Providers Payer Plan Claims Address Claims Phone Policy Number Group Number Relation Employer Guarantor Name Guarantor Guarantor Address Guarantor Phone [facility] [address] [facility] [address], [place] [address] tel: [phone] Self DOUG FULTON 1965 [address] [place] [address] [facility] [place] [address] tel:[phone] Self DOUG FULTON 1965 [address] [place] [address] Problems Condition ICD9 code ICD10 code SNOMED code Start Date End Date S tatus Encounter for screening for other metabolic disorders Z13.228 Results Test Result Date/Time Value / Unit Interp. Refere nce Range Comp. Metabolic Panel (14)[3 13240] Collected: 02/06/2025 02:04 PM Specimen Received: 02/06/2025 05:00 AM Source: [facility] Glucose [[id number]] 02/07/2025 12:52 PM 92 mg/dL 70-99 mg/dL BUN [797610] 02/07/2025 12:52 PM 13 mg/dL 6-2 4 mg/dL Creatinine [317487] 02/07/2025 12:57 PM 0.77 mg/dL 0.57-1.00 mg/dL eGFR [607975] 02/07/2025 12:57 PM 89 mL/min/1.73 >59 mL/min/1.73 BUN/Creatinine Ratio [697410] 02/07/2025 12:57 PM 17 9-23 Sodium [964530] 02/07/2025 12:44 PM 140 mmol/L 134-144 mmol/L Potassium [577095] 02/07/2025 12:44 PM 4.3 mmol/L 3.5-5.2 mmol/L Chloride [751924] 02/07/2025 12:44 PM 104 mmol/L 96-106 mmol/L Carbon Dioxide, Total [890397] 02/07/2025 12:54 PM 20 mmol/L 20-29 mmol/L Calcium [120834] 02/07/2025 12:52 PM 9.8 mg/dL 8.7-10.2 mg/dL Protein, Total [881298] 02/07/2025 01:04 PM 6.6 g/dL 6.0-8.5 g/dL Albumin [751081] 02/07/2025 12:57 PM 4.4 g/dL 3.8-4.9 g/dL Globulin, Total [926116] 02/07/2025 01:04 PM 2.2 g/dL 1.5-4.5 g/dL Bilirubin, Total [985554] 02/07/2025 12:57 PM 0.5 mg/dL 0.0-1.2 mg/dL Alkaline Phosphatase [471578] 02/07/2025 12:59 PM 94 IU/L 44-121 IU/L Effective February 08 Alkaline Phosphatase reference interval will be changing to: Age Male Female 0 - 5 days 47 - 127 47 - 127 6 - 10 days 29 - 242 29 - 242 11 - 20 days 109 - 357 109 - 357 21 - 30 days 94 - 494 94 - 494 1 - 2 months 149 - 539 149 - 539 3 - 6 months 131 - 452 131 - 452 7 - 11 months 117 - 401 117 - 401 12 months - 6 years 158 - 369 158 - 369 7 - 12 years 150 - 409 150 - 409 13 years 156 - 435 78 - 227 14 years 114 - 375 64 - 161 15 years 88 - 279 56 - 134 16 years 74 - 207 51 - 121 17 years 63 - 161 47 - 113 18 - 20 years 51 - 125 42 - 106 21 - 50 years 47 - 123 41 - 116 51 - 80 years 49 - 135 51 - 125 >80 years 48 - 129 48 - 129 AST (SGOT) [128592] 02/07/2025 12:57 PM 17 IU/L 0-40 IU/L ALT (SGPT) [707965] 02/07/2025 12:58 PM 12 IU/L 0-32 IU/L Lipid Panel[[id number]] Collected: 02/06/2025 02:04 PM Specimen Received: 02/06/2025 05:00 AM Source: [facility] Cholesterol, Total [604631] 02/07/2025 01:08 PM 192 mg/dL 100-199 mg/d L Triglycerides [233753] 02/07/2025 01:08 PM 129 mg/dL 0-149 mg/dL HDL Cholesterol [438834] 02/07/2025 01:07 PM 40 mg/dL >39 mg/dL VLDL Cholesterol Wilber [912380] 02/07/2025 01:08 PM 23 mg/dL 5-40 mg/dL LDL Chol Calc ([facility]) [532465] 02/07/2025 01:08 PM 129 mg/dL H 0-99 mg/dL Albumin/Creatinine Ratio,Uri ne[763759] Collected: 02/06/2025 02:04 PM Specimen Received: 02/06/2025 05:00 AM Source: [facility] Creatinine, Urine [[id number]] 02/08/2025 07:39 PM 68.7 mg/dL Not Estab. m g/dL Albumin, Urine [[id number]] 02/08/2025 07:39 PM 3.0 ug/mL Not Estab. ug/mL Alb/Creat Ratio [163249] 02/08/2025 07:39 PM 4 mg/g creat 0-29 mg/g creat Normal: 0 - 29 Moderately i ncreased: 30 - 300 Severely increased: >300 Hemoglobin A1c[358289] Collected: 02/06/2025 02:04 PM Specimen Received: 02/06/2025 05:00 AM Source: [facility] Hemoglobin A1c [[id number]] 02/07/2025 11:30 AM 5.7 % H 4.8-5.6 % . Prediabetes: 5.7 - 6.4 Madhavi betes: >6.4 Glycemic control for adults with diabetes: 7.0 Albumin/Creatinine Ratio,Ulisses ne[[id number]] Collected: 08/29/2024 03:57 PM Specimen Received: 08/29/2024 05:00 AM Source: [facility] Creatinine, Urine [[id number]] 09/01/2024 05:53 PM 87.8 mg/dL Not Estab. m g/dL Albumin, Urine [769287] 09/01/2024 06:10 PM 6.9 ug/mL Not Estab. ug/mL Alb/Creat Ratio [787919] 09/01/2024 06:10 PM 8 mg/g creat 0-29 mg/g creat Normal: 0 - 29 Moderately in creased: 30 - 300 Severely increased: >300 Comp. Metabolic Panel (14)[3 05084] Collected: 08/29/2024 02:10 PM Specimen Received: 08/29/2024 05:00 AM Source: [facility] Glucose [[id number]] 08/30/2024 12:30 PM 128 mg/dL H 70-99 mg/dL BUN [[id number]] 08/30/2024 12:30 PM 11 mg/dL 6-2 4 mg/dL Creatinine [411808] 08/30/2024 12:30 PM 0.72 mg/dL 0.57-1.00 mg/dL eGFR [935707] 08/30/2024 12:30 PM 96 mL/min/1.73 >59 mL/min/1.73 BUN/Creatinine Ratio [635846] 08/30/2024 12:30 PM 15 9-23 Sodium [074507] 08/30/2024 12:30 PM 141 mmol/L 134-144 mmol/L Potassium [151204] 08/30/2024 12:30 PM 4.3 mmol/L 3.5-5.2 mmol/L Chloride [143282] 08/30/2024 12:30 PM 105 mmol/L 96-106 mmol/L Carbon Dioxide, Total [746242] 08/30/2024 12:30 PM 21 mmol/L 20-29 mmol/L Calcium [472551] 08/30/2024 12:30 PM 9.6 mg/dL 8.7-10.2 mg/dL Protein, Total [509657] 08/30/2024 12:30 PM 6.8 g/dL 6.0-8.5 g/dL Albumin [079966] 08/30/2024 12:30 PM 4.7 g/dL 3.8-4.9 g/dL Globulin, Total [294939] 08/30/2024 12:30 PM 2.1 g/dL 1.5-4.5 g/dL Bilirubin, Total [270070] 08/30/2024 12:30 PM 0.4 mg/dL 0.0-1.2 mg/dL Alkaline Phosphatase [781575] 08/30/2024 12:30 PM 145 IU/L H 44-121 IU/L AST (SGOT) [263538] 08/30/2024 12:30 PM 19 IU/L 0-40 IU/L ALT (SGPT) [873804] 08/30/2024 12:30 PM 17 IU/L 0-32 IU/L Lipid Panel[245087] Collected: 08/29/2024 02:10 PM Specimen Received: 08/29/2024 05:00 AM Source: [facility] Cholesterol, Total [584761] 08/30/2024 11:27 AM 185 mg/dL 100-199 mg/d L Triglycerides [583779] 08/30/2024 11:28 AM 168 mg/dL H 0-149 mg/dL HDL Cholesterol [245906] 08/30/2024 11:27 AM 38 mg/dL L >39 mg/dL VLDL Cholesterol Wilber [457298] 08/30/2024 11:28 AM 30 mg/dL 5-40 mg/dL LDL Chol Calc (NIH) [037832] 08/30/2024 11:28 AM 117 mg/dL H 0-99 mg/dL Albumin/Creatinine Ratio,Uri ne[761629] Collected: 08/29/2024 02:10 PM Specimen Received: 08/29/2024 05:00 AM Source: [facility] Creatinine, Urine [[id number]] 09/01/2024 12:43 AM TNP mg/dL Test not performed. Patient was unable to provide a self-collectedspecimen for the requested testing. The following test(s) were notperformed: Albumin, Urine [594521] 09/01/2024 12:43 AM TNP Test not performed Hemoglobin A1c[801030] Collected: 08/29/2024 02:10 PM Specimen Received: 08/29/2024 05:00 AM Source: [facility] Hemoglobin A1c [726715] 08/30/2024 11:27 AM 6.9 % H 4.8-5.6 % . Prediabetes: 5.7 - 6.4 Madhavi betes: >6.4 Glycemic control for adults with diabetes: 7.0 Request Problem[[id number]] Collected: 08/29/2024 02:10 PM Specimen Received: 08/29/2024 05:00 AM Source: [facility] Request Problem [[id number]] 09/01/2024 12:43 AM TNP Test not performed. Patient was unable to provide a self-collectedspecimen for the requested testing. The following test(s) were notperformed: TEST: [id number] Albumin/Creatinine Ratio,Urine Allergies, adverse reactions, alerts No known allergies and adverse reactions Medications No administered medications reported Vital Signs No vital signs reported Social History No smoking Hx information available
--- OUTSIDE RECORDS SUMMARY | 2025-02-13 07:06 | XMS_ITS | Continuity of Care Document ---
[facility] Organization [facility] Address [address] [facility] [address] [place] [address] Insurance Providers Payer Plan Claims Address Claims Phone Policy Number Group Number Relation Employer Guarantor Name Guarantor Guarantor Address Guarantor Phone [facility] [address] [facility] [address] [address] tel: [phone] Self DOUG FULTON 1965 [address] [place] [address] [facility] [place] [address] tel:[phone] [id number] Self DOUG FULTON 1965 [address] [place] [address] Problems Condition ICD9 code ICD10 code SNOMED code Start Date End Date S tatus Encounter for screening for other metabolic disorders Z13.228 Results Test Result Date/Time Value / Unit Interp. Refere nce Range Comp. Metabolic Panel (14)[3 [id number]] Collected: 02/06/2025 02:04 PM Specimen Received: 02/06/2025 05:00 AM Source: [facility] Glucose [[id number]] 02/07/2025 12:52 PM 92 mg/dL 70-99 mg/dL BUN [[id number]] 02/07/2025 12:52 PM 13 mg/dL 6-2 4 mg/dL Creatinine [314716] 02/07/2025 12:57 PM 0.77 mg/dL 0.57-1.00 mg/dL eGFR [923254] 02/07/2025 12:57 PM 89 mL/min/1.73 >59 mL/min/1.73 BUN/Creatinine Ratio [530704] 02/07/2025 12:57 PM 17 9-23 Sodium [944840] 02/07/2025 12:44 PM 140 mmol/L 134-144 mmol/L Potassium [167864] 02/07/2025 12:44 PM 4.3 mmol/L 3.5-5.2 mmol/L Chloride [753457] 02/07/2025 12:44 PM 104 mmol/L 96-106 mmol/L Carbon Dioxide, Total [658879] 02/07/2025 12:54 PM 20 mmol/L 20-29 mmol/L Calcium [246995] 02/07/2025 12:52 PM 9.8 mg/dL 8.7-10.2 mg/dL Protein, Total [123918] 02/07/2025 01:04 PM 6.6 g/dL 6.0-8.5 g/dL Albumin [220468] 02/07/2025 12:57 PM 4.4 g/dL 3.8-4.9 g/dL Globulin, Total [006892] 02/07/2025 01:04 PM 2.2 g/dL 1.5-4.5 g/dL Bilirubin, Total [646170] 02/07/2025 12:57 PM 0.5 mg/dL 0.0-1.2 mg/dL Alkaline Phosphatase [928698] 02/07/2025 12:59 PM 94 IU/L 44-121 IU/L [...] - 129 48 - 129 AST (SGOT) [839562] 02/07/2025 12:57 PM 17 IU/L 0-40 IU/L ALT (SGPT) [745863] 02/07/2025 12:58 PM 12 IU/L 0-32 IU/L Lipid Panel[946564] Collected: 02/06/2025 02:04 PM Specimen Received: 02/06/2025 05:00 AM Source: [facility] Cholesterol, Total [124859] 02/07/2025 01:08 PM 192 mg/dL 100-199 mg/d L Triglycerides [160150] 02/07/2025 01:08 PM 129 mg/dL 0-149 mg/dL HDL Cholesterol [878851] 02/07/2025 01:07 PM 40 mg/dL >39 mg/dL VLDL Cholesterol Wilber [406181] 02/07/2025 01:08 PM 23 mg/dL 5-40 mg/dL LDL Chol Calc ([facility]) [228833] 02/07/2025 01:08 PM 129 mg/dL H 0-99 mg/dL Albumin/Creatinine Ratio,Uri ne[035274] Collected: 02/06/2025 02:04 PM Specimen Received: 02/06/2025 05:00 AM Source: [facility] Creatinine, Urine [[id number]] 02/08/2025 07:39 PM 68.7 mg/dL Not Estab. m g/dL Albumin, Urine [335866] 02/08/2025 07:39 PM 3.0 ug/mL Not Estab. ug/mL Alb/Creat Ratio [956461] 02/08/2025 07:39 PM 4 mg/g creat 0-29 mg/g creat Normal: 0 - 29 Moderately i ncreased: 30 - 300 Severely increased: >300 Hemoglobin A1c[649154] Collected: 02/06/2025 02:04 PM Specimen Received: 02/06/2025 05:00 AM Source: [facility] Hemoglobin A1c [400206] 02/07/2025 11:30 AM 5.7 % H 4.8-5.6 % . Prediabetes: 5.7 - 6.4 Madhavi betes: >6.4 Glycemic control for adults with diabetes: 7.0 Albumin/Creatinine Ratio,Ulisses ne[097297] Collected: 08/29/2024 03:57 PM Specimen Received: 08/29/2024 05:00 AM Source: [facility] Creatinine, Urine [[id number]] 09/01/2024 05:53 PM 87.8 mg/dL Not Estab. m g/dL Albumin, Urine [612217] 09/01/2024 06:10 PM 6.9 ug/mL Not Estab. ug/mL Alb/Creat Ratio [447180] 09/01/2024 06:10 PM 8 mg/g creat 0-29 mg/g creat Normal: 0 - 29 Moderately in creased: 30 - 300 Severely increased: >300 Comp. Metabolic Panel (14)[3 [id number]] Collected: 08/29/2024 02:10 PM Specimen Received: 08/29/2024 05:00 AM Source: [facility] Glucose [[id number]] 08/30/2024 12:30 PM 128 mg/dL H 70-99 mg/dL BUN [070890] 08/30/2024 12:30 PM 11 mg/dL 6-2 4 mg/dL Creatinine [343091] 08/30/2024 12:30 PM 0.72 mg/dL 0.57-1.00 mg/dL eGFR [885540] 08/30/2024 12:30 PM 96 mL/min/1.73 >59 mL/min/1.73 BUN/Creatinine Ratio [240268] 08/30/2024 12:30 PM 15 9-23 Sodium [309116] 08/30/2024 12:30 PM 141 mmol/L 134-144 mmol/L Potassium [221948] 08/30/2024 12:30 PM 4.3 mmol/L 3.5-5.2 mmol/L Chloride [374962] 08/30/2024 12:30 PM 105 mmol/L 96-106 mmol/L Carbon Dioxide, Total [968945] 08/30/2024 12:30 PM 21 mmol/L 20-29 mmol/L Calcium [159311] 08/30/2024 12:30 PM 9.6 mg/dL 8.7-10.2 mg/dL Protein, Total [003252] 08/30/2024 12:30 PM 6.8 g/dL 6.0-8.5 g/dL Albumin [739880] 08/30/2024 12:30 PM 4.7 g/dL 3.8-4.9 g/dL Globulin, Total [361612] 08/30/2024 12:30 PM 2.1 g/dL 1.5-4.5 g/dL Bilirubin, Total [913273] 08/30/2024 12:30 PM 0.4 mg/dL 0.0-1.2 mg/dL Alkaline Phosphatase [747927] 08/30/2024 12:30 PM 145 IU/L H 44-121 IU/L AST (SGOT) [417385] 08/30/2024 12:30 PM 19 IU/L 0-40 IU/L ALT (SGPT) [769147] 08/30/2024 12:30 PM 17 IU/L 0-32 IU/L Lipid Panel[284795] Collected: 08/29/2024 02:10 PM Specimen Received: 08/29/2024 05:00 AM Source: [facility] Cholesterol, Total [883710] 08/30/2024 11:27 AM 185 mg/dL 100-199 mg/d L Triglycerides [647024] 08/30/2024 11:28 AM 168 mg/dL H 0-149 mg/dL HDL Cholesterol [750461] 08/30/2024 11:27 AM 38 mg/dL L >39 mg/dL VLDL Cholesterol Wilber [343740] 08/30/2024 11:28 AM 30 mg/dL 5-40 mg/dL LDL Chol Calc ([facility]) [529864] 08/30/2024 11:28 AM 117 mg/dL H 0-99 mg/dL Albumin/Creatinine Ratio,Uri ne[394858] Collected: 08/29/2024 02:10 PM Specimen Received: 08/29/2024 05:00 AM Source: [facility] Creatinine, Urine [746951] 09/01/2024 12:43 AM TNP mg/dL Test not performed. Patient was unable to provide a self-collectedspecimen for the requested testing. The following test(s) were notperformed: Albumin, Urine [762868] 09/01/2024 12:43 AM TNP Test not performed Hemoglobin A1c[860021] Collected: 08/29/2024 02:10 PM Specimen Received: 08/29/2024 05:00 AM Source: [facility] Hemoglobin A1c [495070] 08/30/2024 11:27 AM 6.9 % H 4.8-5.6 % . Prediabetes: 5.7 - 6.4 Madhavi betes: >6.4 Glycemic control for adults with diabetes: 7.0 Request Problem[367754] Collected: 08/29/2024 02:10 PM Specimen Received: 08/29/2024 05:00 AM Source: [facility] Request Problem [257225] 09/01/2024 12:43 AM TNP Test not performed. Patient was unable to provide a self-collectedspecimen for the requested testing. The following test(s) were notperformed: TEST: [id number] Albumin/Creatinine Ratio,Urine Allergies, adverse reactions, alerts No known allergies and adverse reactions Medications No administered medications reported Vital Signs No vital signs reported Social History No smoking Hx information available
--- OUTSIDE RECORDS SUMMARY | 2025-02-13 07:06 | XMS_ITS | Patient Health Record ---
Author Organization [facility] Address [address] [facility] [place] [address] Care Team Providers Care Table Operator Name Role Phone Sherrell BAHENA, Chris Primary Care Provider Faizan Naranjo Unavailable [phone] Allergies No Known Allergies Results Component Value [...] 40 MG 1 tablet Orally Once a day; Duration: 30 day(s) Active Extra Depth Orthopedic Shoes (1 Pair) with Customized Heat Molded Multidensity Innersoles (3 Pair) as directed Dx: NIDDM/Polyneuropathy (E11.42), Hammertoe Foot Deformity (M20.41,M20.42), Preulcerative Skin Lesion(s) (L85.1 Active Diclofenac 75mg twice a day Active PARoxetine HCl 10 MG Orally Active Omeprazole 20 MG 1 capsule 30 minutes before morning meal Orally Once a day; Duration: 30 day(s) Active metFORMIN HCl 500 MG [...] Vaccine Route Administration Date Status Comme nts Influenza Unknown 03/29/2021 Administered COVID-19 Pfizer BioNTech Vaccine Unknown 07/09/2020 Administered 1st 06/18/2020 2nd 07/09/2020 Social History Tobacco Use: Social History Observation [...] Problem Acquired hammer toe of right foot (9686164090297882 ) Other hammer toe(s) (acquired), right foot (M20.41) Active confirmed Problem Acquired hammer toe of left foot (8434587151330144 ) Other hammer toe(s) (acquired), left foot (M20.42) Active confirmed Problem Polyneuropathy due to type 2 diabetes mellitus (254565872) Type 2 diabetes mellitus with diabetic polyneuropathy (E11.42) Active confirmed Vital Signs Height 5 ft 4 in in 09/29/2024 Weight 265 lbs 09/29/2024 BMI 45.48 kg/m2 09/29/2024 Encounters Encounter Location Date Provider Diagnosis [facility] [place] [address] [place] [address] 09/29/2024 Faizan Bruner Type 2 diabetes mellitus [...] X ray : Foot, left 3V 02/09/2013 24855- Debride <25 sq cm 11/15/2014 00017 I&D ABSCESS- SIMPLE,SINGLE 015 42159 I&D ABSCESS- SIMPLE,SINGLE 015 91920,[id number] TENDON SHEATH/LIGAMENT 1 50,[id number] TENDON SHEATH/LIGAMENT 1 06/07/201286421,[id number] TENDON SHEATH/LIGAMENT 1 06/13/201591848,[id number]-ESI TENDON SHEATH/LIGAMENT 1 06/17/2015 Next Appt Details Provider Name:Faizan Bruner , 09/28/2025 01:30:00 PM, [address] [place] [address], [phone], Insurance Providers Payer Name Payer Address Payer Phone Subscriber Number Group Number Insured Name Patient Relationship to Insured Coverage Start Date Coverage End Date [facility] [address] [place] [phone] [id number] Lorrie Parikh Self - patient is the [...]
[2025-02-13 07:16] LABS: MANUAL DIFF FLAG NO
[2025-02-13 08:24] LABS: Hematocrit 41.8 % (37.0-47.0); Hemoglobin 14.1 g/dl (12.0-16.0); Imm Gran Abs Auto 0.01 X10*3/uL (0.00-0.03); Imm Gran Pct Auto 0.2 % (0.0-0.4); Lymphocytes Absolute Auto 1.4 X10*3/uL (1.2-4.9); Mean Corpuscular HGB Conc 33.7 g/dl (31.0-35.0); Mean Corpuscular Hemoglobin 32.3 pg (27.0-33.0); Mean Corpuscular Volume 95.9 fL (80.0-98.0); NRBC Abs Auto 0.000 X10*3/uL (0.0-0.012); NRBC Pct Auto 0.0 /100WBC (0.0-0.2); Platelet Count 177 X10*3/uL (160-400); Red Blood Count 4.36 X10*6/uL (4.20-5.50); White Blood Count 5.4 X10*3/uL (4.8-10.8)
[2025-02-13 08:52] LABS: Hemoglobin A1C 149.7076 umol/L; Total Hemoglobin (HGBA1C) 3708.2047 umol/L
[2025-02-13 08:59] LABS: Alanine Aminotransferase 22 U/L (0-31); Albumin Level 4.7 g/dL (3.5-5.0); Alkaline Phosphatase 92 U/L (39-117); Anion Gap 11 (12-20); Aspartate Amino Transferase 24 U/L (5-31); Blood Urea Nitrogen 18 mg/dL (9-16); Calcium 9.6 mg/dL (8.4-10.2); Carbon Dioxide 26 mmol/L (22-29); Chloride 108 mmol/L (96-108); Cholesterol 197 mg/dL (<200); Estimated Glomerular Filt Rate > 60; HDL Cholesterol 40 mg/dL (>40); Potassium 4.2 mmol/L (3.3-5.1); Sodium 141 mmol/L (135-145); Total Protein 7.3 g/dL (6.5-8.0); Triglycerides 113 mg/dL (<150)
== END 2025-02-13 07:04 | disposition home or self-care (01) ==
LOC: HO.LABR 07:03
PROVIDERS: PCP Internal Medicine; Visit Provider Physician Assistant
DX: E11.9 Type 2 diabetes mellitus without complications (principal)
CPT/HCPCS: 36415; 80053; 80061; 83036; 85025

== ENCOUNTER 2025-02-16 13:48 | Outpatient (AMB) | payer OTHER, SELFPAY ==
--- OUTSIDE RECORDS SUMMARY | 2024-07-21 09:30 | XMS_ITS ---
Author Organization [facility] Address [address] [place] [address] Care Team Providers Care Carbonation Equipment Operator Name Role Phone Sherrell BAHENA, Chris Primary Care Provider Unavailabl Faizan Low Unavailable [phone] Encounters Encounter Location Date Provider Diagnosis [address] [address] 07/21/2024 Faizan Bruner Plan Of Treatment Next Appt Details Provider Name:Faizan Bruner , 09/28/2025 01:30:00 PM, [address] [place] [address], [phone], Progress Notes * Lorrie FULTON MDOB: 5 (59 yo F)Acc No.[id number]:07/21/2024 Progress Note Patient: Lorrie JOHNSON Provider: Elodia Bruner DPM :1965 A ge:59 Y S ex:Female Date:07/21/2024 Address: [address] [id number] Pcp:Chris Wynne MD Subjective: * Chief Complaints: * * Medical History: Objective: * Vitals: Assessment: Plan: * Treatment: * Images: * The named appointment provid er may or may not be the originator of this progress note, and it is not deemed complete until electronically signed by the appointment provider. Sign off status: Pending * Provider: Elodia Bruner DPM Date: 0 07/21/2024 Generated for Ila Quinones on: 02/16/2025 05:01 PM EDT
--- NOTE | 2025-02-16 13:56 | A.OFFVIS_ITS ---
Intake Visit Reasons: 6m Allergies No Known Allergies Allergy (Verified 02/16/25 14:06) Medication List - Last Reconciled 02/16/25 by Shereen Joshi CNP atorvastatin 80 mg PO DAILY cholecalciferol (vitamin D3) 50 mcg PO DAILY diclofenac sodium 75 mg PO BID 30 days gabapentin 300 mg PO BID levothyroxine (Levo-T) 75 mcg PO DAILY lorazepam 0.5 mg PO BEDTIME PRN metformin 500 mg PO DAILY omeprazole 20 mg PO DAILY paroxetine HCl 10 mg PO DAILY tirzepatide (Mounjaro) 5 mg subcut QWEEK HPI Comments Details: She was doing okay. LBP has been stable, worse with activity.?Diclofenac dose was reduced to 50mg twice a day, no significant increase in pain. 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 Has some leg restlessness at night sometimes if she overdoes it. Bilateral buttock pain is triggered by activity. Leg pain/numbness has been treated with gabapentin for few years?has helped with symptoms. She had pain originating from the low back, and extending down the back of her legs. CTS well resolved since bilateral release in September and October, but wrists feel stiff occasionally. Had CTS release bilaterally in September and October 2017 with good results. Occasional low back pain and sacral area pain. She has no sphincter dysfunction and specifically no bladder incontinence or trouble with frequency. She has normal rectal sensation and rectal control. Genital sensation to touch, wiping and sexual intercourse has not changed. Review of Systems Const Denies chills, Denies daytime sleepiness, Denies difficulty sleeping, Denies fatigue, Denies fever(s), Denies frequent falls, Denies headache(s), Denies increased appetite, Denies poor appetite, Denies snoring, Denies weakness, Denies weight gain and Denies weight loss Eyes Denies loss of vision ENT Denies vertigo, Denies dizziness, Denies headache(s) and Reports neck pain Card Denies chest pain at rest, Denies chest pain with activity, Denies syncope, Denies leg edema, Denies palpitations, Denies dyspnea and Denies dyspnea on exertion Resp Denies cough, Denies dyspnea, Denies dyspnea on exertion and Denies snoring GI Denies abdominal pain, Denies constipation, Denies heartburn, Denies diarrhea and Denies nausea Denies urinary frequency, Denies urinary incontinence and Denies urinary urgency Musc Denies abnormal gait, Reports back pain, Denies myalgias, Denies arthralgias, Reports neck pain, Denies numbness and Denies tingling Neuro Denies abnormal gait, Denies vertigo, Denies dizziness, Denies syncope, Denies frequent falls, Denies headache(s), Denies lack of coordination, Denies loss of vision, Denies memory loss, Denies numbness, Denies Other visual disturbances, Denies restless legs, Denies seizure-like activity, Denies tingling, Denies paresthesias, Denies tremor(s) and Denies weakness Psych Denies anxiety, Denies depression, Denies auditory hallucinations, Denies memory loss and Denies visual hallucinations Endo Denies fatigue and Denies palpitations Physical Exam Const Other: General Appearance:? normal, in no acute distress. Heart:? S1, S2 normal, no murmurs. Lungs:? clear anteriorly and posteriorly. Musculoskeletal:? normal. Extremities:? no edema. Psych:? alert, oriented, cognitive function intact, cooperative with exam. Neuro Other: Abnormal Neurological Findings:?none.? Mental Status: alert and oriented X 3. Normal attention, orientation, memory, and affect. Cranial Nerves: Pupils are equal, round, and reactive to light. External ocular muscles are intact. Visual jackson are full, no ptosis. Face is symmetrical, no facial weakness or droop. Facial sensations are normal. Tongue protrudes in midline. Palate elevates symmetrically. Shoulder shrugging is normal Motor Examination: Normal muscle tone, bulk and strength. No atrophy or fasciculations. No drift of the extended upper extremities. DTR 2+. Plantars are flexor. Sensory Exam: Normal light touch, temperature, pinprick, vibration, and joint- position sensations. Rhomberg sign is absent. Coordination: No ataxia. No titubation. Gait Exam: Within normal limits. Cerebellar Signs: [id number] and [id number] is normal. No dysdiadochokinesia. Extrapyramidal System: No tremor, rigidity with normal facial expressions. No bradykinesia. No bradyphrenia. Normal arm swing and posture. No propulsion or retropulsion. Speech: Normal. Results Reviewed Results Reviewed: NCV/EMG UE 10/09/16 Moderately severe carpal tunnel syndrome on the right, and a moderate carpal tunnel syndrome on the left. Normal EMG in the C5-T1 innervated muscles. . Possible cauda equina or conus medullaris lesion. Rule out cervical cord lesion NCV/EMG LE on 08/31/14 : NORMAL MOTOR AND SENSORY NERVE CONDUCTION VELOCITIES IN THE LOWER EXTREMITIES. NORMAL EMG IN THE LEFT L4-S1 INNERVATED MUSCLES. 08/31/14 LSER : ABNORMAL BILATERAL LOWER LIMB SER DUE TO A DELAY IN THE LARGE FIBER CONDUCTING SYSTEM BETWEEN THE CONUS MEDULLARIS AND THE PARIETAL CORTEX. MRI of brain with few non specific WM lesions. 09/08 MRI LS spine and pelvis negative. Assessment & Plan Assessment & Plan (1) Vertebrogenic low back pain: Code(s): M54.51 - Vertebrogenic low back pain Category: Medical Plan: Continue diclofenac sodium 50mg 1 tablet twice a day. (2) Carpal tunnel syndrome: Code(s): G56.00 - Carpal tunnel syndrome, unspecified upper limb Category: Medical Qualifiers: Laterality: bilateral Qualified Code(s): G56.03 - Carpal tunnel syndrome, bilateral upper limbs Plan . Coding Level of Care Code Est Pt Level 4 (55786) Diagnoses Vertebrogenic low back pain M54.51 Bilateral carpal tunnel syndrome G56.03 Laterality: bilateral
--- OUTSIDE RECORDS SUMMARY | 2025-02-16 17:01 | XMS_ITS | Patient Health Record ---
Author [facility] Address [address] [facility] [place] [address] Care Team Providers Care Email Marketing Coordinator Name Role Phone Sherrell BAHENA, Chris Primary Care Provider Faizan Naranjo Unavailable [phone] Allergies No Known Allergies Results Component Value [...] Problem Acquired hammer toe of right foot (6290063075280181 ) Other hammer toe(s) (acquired), right foot (M20.41) Active confirmed Problem Acquired hammer toe of left foot (5863581461392173 ) Other hammer toe(s) (acquired), left foot (M20.42) Active confirmed Problem Polyneuropathy due to type 2 diabetes mellitus (931575067) Type 2 diabetes mellitus with diabetic polyneuropathy (E11.42) Active confirmed Vital Signs Height 5 ft 4 in in 09/29/2024 Weight 265 lbs 09/29/2024 BMI 45.48 kg/m2 09/29/2024 Encounters Encounter Location Date Provider Diagnosis [facility] [place] [address] [place] [address] 09/29/2024 Faizan Bruner Type 2 diabetes mellitus [...] X ray : Foot, left 3V 02/09/2013 87794- Debride <25 sq cm 11/15/2014 00791 I&D ABSCESS- SIMPLE,SINGLE 015 85368 I&D ABSCESS- SIMPLE,SINGLE 015 03924,[id number] TENDON SHEATH/LIGAMENT 1 50,[id number] TENDON SHEATH/LIGAMENT 1 06/07/201253953,Z8385-ZAP TENDON SHEATH/LIGAMENT 1 06/13/201513061,[id number]-ADO TENDON SHEATH/LIGAMENT 1 06/17/2015 Next Appt Details Provider Name:Faizan Bruner , 09/28/2025 01:30:00 PM, [address] [place] [address], [phone], Insurance Providers Payer Name Payer Address Payer Phone Subscriber Number Group Number Insured Name Patient Relationship to Insured Coverage Start Date Coverage End Date [facility] [address] [place] [phone] [id number] Lorrie Parikh Self - patient is the [...]
--- OUTSIDE RECORDS SUMMARY | 2025-02-16 17:01 | XMS_ITS | Patient Health Record ---
Author Organization [facility] Address [address] [place] [address] Care Team Providers Care Assistant Media Planner Name Role Phone Suleman (RETIRED) [place] BAHENA Primary Care Provide r Unavailable Vincent Campoverde Unavailable [phone] Reason For Referral No Information Medications Medication [...] W/U Status Risk Notes Problem Pre-surgery evaluation (228914235) Other specified pre-operative examination (V72.83) Active confirmed Problem Colon cancer screening (919916368) Colon cancer screening (V76.51) Active confirmed Problem Gastroesophageal reflux disease (879752616) GERD (gastroesophag eal reflux disease) (530.81) Active confirmed Plan Of Treatment Pending Test Test Name Order Date GI BIOPSY 03/04/2015 Future Test Test Name Order Date UPPER GI ENDOSCOPY 09/28/2014 COLONOSCOPY 09/28/2014 Insurance Providers Payer Name Payer Address Payer Phone Subscriber Number Group Number Insured Name Patient Relationship to Insured Coverage Start Date Coverage End Date [facility] [address] [facility] [place] [phone] [id number] DOUG FULTON Self - patient is the insured Medical (General) History Medical History History ICD Code NIDDM Denies UT,CVA,Lung disease,renal disease Cardiac ablation in 2000 Hyperlipidemia Hypothyroidism Anxiety GERD Taking Gabapentin for pelvic pain Surgical History Surgery Date(Month/Year) section 1990 deviated septum repair 1995
== END 2025-02-16 14:16 | disposition home or self-care (01) ==
LOC: HO.HSM 13:48
PROVIDERS: PCP Internal Medicine; Referring Provider Internal Medicine; Visit Provider Registered Nurse
DX: M54.51 Vertebrogenic low back pain (principal); G56.03 Carpal tunnel syndrome, bilateral upper limbs
CPT/HCPCS: 99214